=== PATIENT | male | born 1985 | race Caucasian/White ===

== ENCOUNTER 2023-01-29 15:00 | Inpatient (IN) | payer BC, SELFPAY ==
[2023-01-29] VITALS (17 sets, daily range): BP systolic 119–157; BP diastolic 49–93; PULSE 74–94; RESP 10–26; TEMP 36.8–36.9; O2SAT 93–98; BMI 53.2; BMI 48.9
--- NOTE | 2023-01-29 15:36 | CT_ITS ---
[address] [address] Patient Name: JAMIE STOUT MRN: [id number] date: 1985 Sex: M Assigned Patient Location: ER Current Patient Location: ER Accession/Order Number: [id number] Exam Date: 01/29/2023 17:23 Report Date: 01/29/2023 18:33 At the request of: SHANNAN PATTON Procedure: CT abdomen pelvis w con EXAM: CT abdomen pelvis w con REASON FOR EXAM: Male, 37 years, Rectal abscess. TECHNIQUE: Computed tomography of the abdomen and pelvis is performed in the axial projection from the lung bases to the pubic symphysis. Sagittal and coronal reconstructed images are performed. Dose reduction techniques were achieved by using automated exposure control and/or adjustment of mA and/or KVP according to patient size and/or use of iterative reconstruction technique. Images were performed following the administration of intravenous contrast. Study was performed without oral contrast. COMPARISON: 09/23/2022 FINDINGS: Lung bases: The lung bases are clear. There is no pleural effusion. The visualized portions of the heart are unremarkable. Liver: There is diffuse decreased attenuation throughout the liver consistent with steatosis. The liver is enlarged. Gallbladder: The gallbladder is normal. Spleen: The spleen is normal. There are several small splenules. Pancreas: The pancreas is normal. Adrenal glands: The adrenal glands are normal bilaterally. Right kidney: The right kidney is atrophic and scarred. There is no renal calculus or hydronephrosis. Left kidney: The kidney is normal in size. There is no renal calculus or hydronephrosis. Stomach: The stomach is normal. Small bowel: The small bowel is normal. Large bowel: The colon is normal. Appendix: The appendix is visualized, and is normal. Aorta: The aorta is normal. IVC: The IVC is normal. Retroperitoneum: Normal retroperitoneum. Bladder: The bladder is mildly distended at the time of imaging. Pelvic organs: Normal prostate gland. Abdominal wall: There is inflammatory change to the subcutaneous fat posterior to the rectum within the gluteal crease. No definite drainable fluid collection is seen. This suggests phlegmon. This region measures approximately 4.6 x 3.5 cm. Osseous structures: Degenerative changes are seen in the visualized spine. CT/CT abdomen pelvis w con IMPRESSION: Inflammatory changes are seen posterior to the rectum within the subcutaneous fat in the midline gluteal crease. Findings suggest phlegmon. No well-formed drainable abscess is identified. Hepatic steatosis and hepatomegaly. Scarred, atrophic right kidney is unchanged from the prior study. Additional nonacute findings, as described above. Electronically authenticated by: JAYCE HADLEY Date: 01/29/2023 18:33
--- NOTE | 2023-01-29 15:39 | ED_ITS ---
HPI - General Adult General Chief complaint: Skin/Abscess/Foreign Body Stated complaint: POSSIBLE CYST IN REAR/INFECTION OF 01/27/23 Time Seen by Provider: 01/29/23 15:10 Source: patient Mode of arrival: walk-in Limitations: no limitations History of Present Illness HPI narrative: Patient is a 37-year-old male who presents to the emergency department for the evaluation of increasing redness, warmth and swelling with pain to the buttocks and superior rectal area. Patient states that he 1st noticed the area eight days ago. He was seen by his PCP two days ago in the office and was started on Bactrim. He has been taking the Bactrim without improvement. He reports hot and cold chills with fevers as high as 101.0 Fahrenheit two days ago in the PCP office. He reports nausea but no vomiting. He had diarrhea two days ago but has not had bowel movements in the last two days. He states his urination has decreased and his urine is strongly smelling and concentrated. He states his appetite has been fair. There has been no drainage from the perirectal area. He has no history of pilonidal cyst. Related Data Home Medications Medication Instructions Recorded Confirmed metformin 500 mg tablet 500 mg PO DAILY 01/29/23 01/29/23 metoprolol succinate 50 mg 50 mg PO BID 01/29/23 01/29/23 tablet,extended release 24 hr Previous Rx's Medication Instructions Recorded amoxicillin 875 mg-potassium 1 tab PO Q12H #10 tabs 01/31/23 clavulanate 125 mg tablet Allergies Allergy/AdvReac Type Severity Reaction Status Date / Time promethazine [From Phenergan] Allergy Intermediate Verified 01/29/23 15:14 Review of Systems ROS Constitutional Denies: fever or chills Ears, nose, mouth, and throat Denies: throat pain Cardiovascular Denies: chest pain Respiratory Denies: shortness of breath or cough Gastrointestinal Reports: nausea; Denies: abdominal pain Genitourinary Reports: urinary urgency and decreased urine ouput Musculoskeletal Denies: back pain Integumentary/Breast Reports: skin pain, skin tenderness and skin swelling; Denies: rash Neurological Denies: headache [facility] Medical History (Updated 01/30/23 @ 13:05 by Shaikh Konrad MD) Family History Grandfather Family history of cancer Father Family history of diabetes mellitus Family history of hypertension Social History Smoking status: Never smoker Non-prescribed substance use: denies use Previous occupational history: steel construction worker Known occupational exposures/hazards: No Highest level of school completed/degree received: 12th grade, no diploma Do you want help with school or training: No Are you now , , , , never or living with a partner: living with partner In a typical week, how many times do you talk on the telephone with family, friends, or neighbors: 3 or more times per week How often do you get together with friends or relatives: 3 or more times per week How often do you attend confucianism or bahai services: never Do you belong to any clubs or organizations such as confucianism groups unions, fra[employer]ink[employer] or athletic groups, or school groups: no Total score: 2 Score interpretation: A score of greater than or equal to 2 indicates the lowest level of social isolation. Little interest or pleasure in doing things: not at all Feeling down, depressed, or hopeless: not at all Feel stressed/tense/nervous/anxious/difficulty sleeping: not at all Life stressors: unknown source of stress Due to disability, difficulty making decisions: No Do you think of yourself as: straight/heterosexual Gender Identity: male Exam Narrative Exam Narrative: Gen.: Awake, alert, in no distress Head: Normocephalic, atraumatic ENT: Moist mucous membranes Respiratory: No respiratory distress Gastrointestinal: Abdomen is soft, nondistended and nontender to palpation Back: Superior buttocks with induration, warmth and swelling, worse on the right. No visible central abscess noted. No extension of redness or swelling to the rectum. Extremities: Moves extremities equally Psych: Normal mood and affect Neuro: No focal neuro deficit Skin: Warm, dry, intact Constitutional Vital Signs, click to edit/add: Last Vital Signs Temp 98.1 F 01/31/23 09:05 Pulse 76 01/31/23 09:05 Resp 20 01/31/23 09:05 BP 156/81 H 01/31/23 09:05 Pulse Ox 97 01/31/23 11:28 O2 Del Method Room Air 01/31/23 11:28 Course Vital Signs Vital signs: Vital Signs Temperature 98.5 F 01/29/23 15:08 Pulse Rate 92 H 01/29/23 15:08 Respiratory Rate 20 01/29/23 15:08 Blood Pressure 144/93 H 01/29/23 15:08 Pulse Oximetry 98 01/29/23 15:08 Oxygen Delivery Method Room Air 01/29/23 15:08 Temperature 98.1 F 01/31/23 09:05 Pulse Rate 76 01/31/23 09:05 Respiratory Rate 20 01/31/23 09:05 Blood Pressure 156/81 H 01/31/23 09:05 Pulse Oximetry 97 01/31/23 11:28 Oxygen Delivery Method Room Air 01/31/23 11:28 Medical Decision Making MDM Narrative Medical decision making narrative: Patient was medicated with IV Dilaudid, Toradol, Zofran, fluids. He had no episodes of emesis in the Emergency Room, he was remedicated with Dilaudid after his CT scan. Labs show minimal leukocytosis but normal lactic acid. Patient with a history of diabetes. He was treated with Cipro and Flagyl IV in case of possible rectal involvement. CT shows that the patient has a 4.6 cm phlegmon with no drainable abscess. There is inflammatory change noted in the buttocks consistent with cellulitis. I discussed the case with Dr. Galicia [facility] who recommended adding Zosyn for the patient. We will plan to admit for pain control and antibiotics overnight, patient with stable vital signs at this time. No plan for surgical procedures at this time. Dr. Mccarthy accepted the patient for admission (1854) Reevaluated by attending physician prior to admission. At time of admission, patient reported feeling some discomfort in his chest after standing, feeling nauseous. He was dry heaving and was given additional Zofran. An EKG was performed showing normal sinus rhythm at a rate of 86, no acute ST elevation or ectopy. This is reviewed by attending physician. Medical Records Medical records reviewed: Yes I reviewed the patient's medical records Lab Data Lab results reviewed: Yes I reviewed the patient's lab results Labs: Lab Results 01/29/23 01/29/23 Range/Units 16:00 16:15 WBC 12.8 H (4.0-11.0) 10^3/uL RBC 4.68 L (4.70-6.10) 10^6/uL Hgb 13.3 L (14.0-18.0) g/dL Hct 38.5 L (42.0-54.0) % MCV 82.3 (80.0-94.0) fL MCH 28.4 (25.9-34.0) pg MCHC 34.5 (29.9-35.2) g/dL RDW 13.4 (11.0-15.0) % Plt Count 292 (150-450) 10^3/uL MPV 10.0 (9.5-13.5) fL Neut % (Auto) 75.4 H (43.0-75.0) % Lymph % (Auto) 13.0 L (20.5-60.0) % Mineral % (Auto) 7.8 (1.7-12.0) % Eos % (Auto) 2.8 (0.9-7.0) % Baso % (Auto) 0.5 (0.2-2.0) % Neut # (Auto) 9.6 H (1.4-6.5) 10^3/uL Lymph # (Auto) 1.7 (1.2-3.8) 10^3/uL Mineral # (Auto) 1.0 H (0.3-0.8) 10^3/uL Eos # (Auto) 0.4 (0.0-0.7) 10^3/uL Baso # (Auto) 0.1 (0.0-0.1) 10^3/uL Abs Immat Gran (auto) 0.06 H (0.00-0.03) 10^3/uL Imm/Tot Granulo (auto) 0.5 (0.0-0.5) % ESR 68 H (<=15) mm/hr Sodium 134 L (136-145) mmol/L Potassium 4.0 (3.5-5.1) mmol/L Chloride 98 (98-107) mmol/L Carbon Dioxide 24.5 (21.0-32.0) mmol/L Anion Gap 15.5 BUN 11.0 (7.0-18.0) mg/dL Creatinine 0.93 (0.70-1.30) mg/dL Est GFR ( Amer) >60 (>=60) Est GFR (Non-Af Amer) >60 (>=60) BUN/Creatinine Ratio 11.8 Glucose 310 H (74-106) mg/dL Lactate 2.0 (0.4-2.0) mmol/L Calcium 8.9 (8.5-10.1) mg/dL Total Bilirubin 1.0 (0.2-1.0) mg/dL AST 18 (15-37) U/L ALT 41 (16-63) U/L Alkaline Phosphatase 118 H (46-116) U/L C-Reactive Protein 29.3 H (<=1.0) mg/dL Total Protein 7.8 (6.4-8.2) g/dL Albumin 3.2 L (3.4-5.0) g/dL Globulin 4.6 g/dL Albumin/Globulin Ratio 0.7 Urine Color Dk. yellow (YELLOW) Urine Clarity Clear (CLEAR) Urine pH 6.0 (5.0-9.0) Ur Specific [place] 1.025 (1.005-1.025) Urine Protein 100 A (NEG/TRACE) mg/dL Urine Glucose (UA) 500 A (NEGATIVE) mg/dL Urine Ketones 15 A (NEGATIVE) mg/dL Urine Occult Blood Negative (NEGATIVE) Urine Nitrite Negative (NEGATIVE) Urine Bilirubin Negative (NEGATIVE) Urine Urobilinogen >=8.0 (0.2-1.0) EU/dL Ur Leukocyte Esterase Negative (NEGATIVE) Urine RBC 0-2 (0-2) #/HPF Urine WBC None seen (NONE SEEN) #/HPF Ur Squamous Epith Cells Rare (NONE/RARE) #/LPF Urine Crystals None seen (None Seen) #/HPF Urine Bacteria None seen (NONE SEEN) #/HPF Urine Casts None seen (NONE SEEN) #/LPF Urine Mucus None seen (NONE SEEN) Ur Culture Indicated? No Imaging Data CT scan - abdomen: Attestation: I have reviewed the pertinent imaging results. Radiologist's impression: Procedure: CT abdomen pelvis w con EXAM: CT abdomen pelvis w con REASON FOR EXAM: Male, 37 years, Rectal abscess. TECHNIQUE: Computed tomography of the abdomen and pelvis is performed in the axial projection from the lung bases to the pubic symphysis. Sagittal and coronal reconstructed images are performed. Dose reduction techniques were achieved by using automated exposure control and/or adjustment of mA and/or KVP according to patient size and/or use of iterative reconstruction technique. Images were performed following the administration of intravenous contrast. Study was performed without oral contrast. COMPARISON: 09/23/2022 FINDINGS: Lung bases: The lung bases are clear. There is no pleural effusion. The visualized portions of the heart are unremarkable. Liver: There is diffuse decreased attenuation throughout the liver consistent with steatosis. The liver is enlarged. Gallbladder: The gallbladder is normal. Spleen: The spleen is normal. There are several small splenules. Pancreas: The pancreas is normal. Adrenal glands: The adrenal glands are normal bilaterally. Right kidney: The right kidney is atrophic and scarred. There is no renal calculus or hydronephrosis. Left kidney: The kidney is normal in size. There is no renal calculus or hydronephrosis. Stomach: The stomach is normal. Small bowel: The small bowel is normal. Large bowel: The colon is normal. Appendix: The appendix is visualized, and is normal. Aorta: The aorta is normal. IVC: The IVC is normal. Retroperitoneum: Normal retroperitoneum. Bladder: The bladder is mildly distended at the time of imaging. Pelvic organs: Normal prostate gland. Abdominal wall: There is inflammatory change to the subcutaneous fat posterior to the rectum within the gluteal crease. No definite drainable fluid collection is seen. This suggests phlegmon. This region measures approximately 4.6 x 3.5 cm. Osseous structures: Degenerative changes are seen in the visualized spine. IMPRESSION: Inflammatory changes are seen posterior to the rectum within the subcutaneous fat in the midline gluteal crease. Findings suggest phlegmon. No well-formed drainable abscess is identified. Hepatic steatosis and hepatomegaly. Scarred, atrophic right kidney is unchanged from the prior study. Additional nonacute findings, as described above. Electronically authenticated by: JAYCE HADLEY Date: 01/29/2023 18:33 ECG Data Attestation: I personally reviewed and interpreted this ECG as follows: (Normal sinus rhythm at a rate of eighty-six, no acute ST elevation or ectopy. EKG reviewed by attending physician) Discharge Plan Discharge Chief Complaint: Skin/Abscess/Foreign Body Clinical Impression: Phlegmon, Cellulitis, Pain in rectum Patient Disposition: Admitted As Inpatient Time of Disposition Decision: 18:50 Condition: Good Discharge Date/Time: 01/29/23 20:05
[2023-01-29] MEDS: 0.9 % SODIUM CHLORIDE 1,000 ML 999 ML IV (16:07)
[2023-01-29] MEDS: HYDROMORPHONE HCL 1 MG/ML CARTRIDGE IVP ×2 (16:08→17:44)
[2023-01-29] MEDS: ONDANSETRON PF 4 MG/2 ML VIAL IV ×3 (16:08→22:59)
[2023-01-29] MEDS: KETOROLAC TROMETHAMINE 30 MG/ML VIAL IVP ×2 (16:08→22:59)
[2023-01-29 16:35] LABS: Basophils Absolute Auto 0.1 10^3/uL (0.0-0.1); Basophils Percent Auto 0.5 % (0.2-2.0); Eosinophils Absolute Auto 0.4 10^3/uL (0.0-0.7); Eosinophils Percent Auto 2.8 % (0.9-7.0); Hematocrit 38.5 % (42.0-54.0); Hemoglobin 13.3 g/dL (14.0-18.0); Immature Granulocytes Abs Auto 0.06 10^3/uL (0.00-0.03); Immature Granulocytes Pct Auto 0.5 % (0.0-0.5); Lymphocytes Absolute Auto 1.7 10^3/uL (1.2-3.8); Mean Corpuscular HGB Conc 34.5 g/dL (29.9-35.2); Mean Corpuscular Hemoglobin 28.4 pg (25.9-34.0); Mean Corpuscular Volume 82.3 fL (80.0-94.0); Monocytes Percent Auto 7.8 % (1.7-12.0); Neutrophils Absolute Auto 9.6 10^3/uL (1.4-6.5); Neutrophils Percent Auto 75.4 % (43.0-75.0); Platelet Count 292 10^3/uL (150-450); Red Blood Count 4.68 10^6/uL (4.70-6.10); Red Cell Distribution Width 13.4 % (11.0-15.0); White Blood Count 12.8 10^3/uL (4.0-11.0)
[2023-01-29 16:40] LABS: Bilirubin Urine NEGATIVE (NEGATIVE); Blood Urine NEGATIVE (NEGATIVE); Clarity Urine CLEAR (CLEAR); Color Urine DK. YELLOW (YELLOW); Glucose Urine UA 500 mg/dL (NEGATIVE); Ketones Urine 15 mg/dL (NEGATIVE); Leukocyte Esterase Urine NEGATIVE (NEGATIVE); Nitrite Urine NEGATIVE (NEGATIVE); Protein Urine 100 mg/dL (NEG/TRACE); Specific Gravity Urine 1.025 (1.005-1.025); Urobilinogen Urine >=8.0 EU/dL (0.2-1.0)
[2023-01-29 16:41] LABS: Urine Microscopic Indicated YES
[2023-01-29 16:56] LABS: Erythrocyte Sedimentation Rate 68 mm/hr (<=15)
[2023-01-29 16:58] LABS: Alanine Aminotransferase 41 U/L (16-63); Albumin Globulin Ratio 0.7; Albumin Level 3.2 g/dL (3.4-5.0); Alkaline Phosphatase 118 U/L (46-116); Anion Gap 15.5; Aspartate Amino Transferase 18 U/L (15-37); BUN Creatinine Ratio 11.8; C Reactive Protein 29.3 mg/dL (<=1.0); Calcium 8.9 mg/dL (8.5-10.1); Carbon Dioxide 24.5 mmol/L (21.0-32.0); Chloride 98 mmol/L (98-107); Estimated GFR (African America >60 (>=60); Estimated GFR (Non-African Ame >60 (>=60); Globulin 4.6 g/dL; Glucose 310 mg/dL (74-106); Sodium 134 mmol/L (136-145); Total Protein 7.8 g/dL (6.4-8.2)
[2023-01-29 17:02] LABS: Bacteria Urine NONE SEEN #/HPF (NONE SEEN); Cast Seen? NONE SEEN #/LPF (NONE SEEN); Crystals Seen? None Seen #/HPF (None Seen); Mucus Urine NONE SEEN (NONE SEEN); RBC Urine 0-2 #/HPF (0-2); Squamous Epithelial Cell Urine RARE #/LPF (NONE/RARE); Urine Culture Indicated NO; WBC Urine NONE SEEN #/HPF (NONE SEEN)
[2023-01-29] MEDS: CIPROFLOXACIN IN 5 % DEXTROSE 400 MG/200 ML PIGGYBACK IV (17:14)
[2023-01-29] MEDS: METRONIDAZOLE/SODIUM CHLORIDE 500 MG/100 ML PREMIX 100 MG IV (18:40)
--- NOTE | 2023-01-29 19:10 | ECG_ITS ---
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
[2023-01-29] MEDS: PIPERACILLIN SODIUM/TAZOBACTAM 4.5 GM in 0.9 % SODIUM CHLORIDE 50 ML IV (19:24)
--- NOTE | 2023-01-29 20:37 | PC.NURSE ---
bilateral buttocks noted warm, red, and hard to touch
[2023-01-29 21:39] LABS: Glucometer 286 mg/dL (74-106)
--- NOTE | 2023-01-29 22:29 | P.PN_ITS ---
Progress Note: Subjective Subjective Interval history: The patient is a 37-year-old male with a history of hypertension and diabetes on metformin, who apparently noticed a pea-sized bump in his gluteal fold about a week ago. He is not sure how it got there. He does work in the waters a lot and thought it was a cut and got worse with heat or sweat. He has had some bites over his legs and is not sure if he had a spider bite. It continued to become larger in size and then painful and indurated. He saw his primary care physician 2 days ago and was started on Bactrim. He started developing fevers. He had put Neosporin on it prior to that with no effect. He presented to the ED today and actually underwent a CT which showed a 4.6 cm phlegmon. The ED provider spoke to Dr. Galicia from general surgery who stated that the patient needs to be on IV antibiotics and he will consult in the morning. The patient was started on Zosyn and vancomycin and is being admitted for further evaluation. Exam Narrative Exam Narrative: General : Alert and oriented x3 HEENT : Extraocular movements intact, pupils equal round and reactive to light and accommodation Neck: Supple, no JVD Chest: Clear to auscultation bilaterally, no wheezes Heart: Regular rate and rhythm, S1 and S2 heard Abdomen: Soft nontender nondistended. Extremities: No clubbing cyanosis or edema Neurologically: Moving all 4 extremities Skin: Large cellulitic area over buttocks, right greater than the left, painful and indurated to touch, warm to touch according to nurse Constitutional Vital Signs, click to edit/add: Last Vital Signs Temp 98.3 F 01/29/23 20:42 Pulse 94 H 01/29/23 20:42 Resp 20 01/29/23 20:42 BP 157/90 H 01/29/23 20:42 Pulse Ox 93 L 01/29/23 20:42 O2 Del Method Room Air 01/29/23 20:42 Progress Note: Objective Labs Labs: Short CBC 01/29/23 Range/Units 16:15 WBC 12.8 H (4.0-11.0) 10^3/uL Hgb 13.3 L (14.0-18.0) g/dL Hct 38.5 L (42.0-54.0) % Plt Count 292 (150-450) 10^3/uL BMP 01/29/23 16:15 Sodium 134 L Potassium 4.0 Chloride 98 Carbon Dioxide 24.5 BUN 11.0 Creatinine 0.93 Glucose 310 H Calcium 8.9 Liver Function 01/29/23 Range/Units 16:15 Total Bilirubin 1.0 (0.2-1.0) mg/dL AST 18 (15-37) U/L ALT 41 (16-63) U/L Alkaline Phosphatase 118 H (46-116) U/L Albumin 3.2 L (3.4-5.0) g/dL Urine 01/29/23 Range/Units 16:00 Urine Color Dk. yellow (YELLOW) Urine Clarity Clear (CLEAR) Urine pH 6.0 (5.0-9.0) Ur Specific [place] 1.025 (1.005-1.025) Urine Protein 100 A (NEG/TRACE) mg/dL Urine Glucose (UA) 500 A (NEGATIVE) mg/dL Progress Note: A&P Assessment and Plan (1) Phlegmon: (2) Cellulitis: Assessment and Plan: The patient is a 37-year-old male with above medical problems, presenting with cellulitis and phlegmon of the gluteal cleft. Cellulitis and phlegmon of the gluteal cleft -Provide supportive care -Empiric antibiotics with Zosyn and vancomycin - NPO -Surgical evaluation in a.m. for possible incision and drainage Accelerated hypertension -Hydralazine IV as needed Diabetes -Sliding scale coverage -Hold metformin as patient recently got CT and is n.p.o. DVT Prophylaxis - SCDs Medication review -Medication reconciliation form completed Goals of care -Full code Communications -Discussed with the emergency room physician -Discussed with the bedside nurse -Patient and girlfriend updated of plan of care, all questions answered to their satisfaction Disposition -Home when medically stable Telemedicine clause -As the provider of this telehealth evaluation, requested by the patient's evaluating physician, I attest that I introduced myself to the patient, provided my credentials and determined that telemedicine via a real-time, two-way interactive audio and video platform is an appropriate and effective means of providing this service. -I reviewed the patient's chart and had a discussion with the member of the gabino kilpatrick's treatment team. -The patient and I mutually agreed with continuation of this evaluation via telemedicine. The patient consented for the telemedicine evaluation. -This virtual encounter was taken place from [place], [place]. The encounter was approximately 35 minutes. The nurse was present during the entire time of the encounter and was able to remove the stethoscope and appropriate directions. The patient was evaluated at [facility] Telemedicine Attestation Telemedicine Attestation I conducted this encounter from [] via secure live, [id number] video conference with the patient, located at [facility] with []. Prior to the interview, the risks and benefits of telemedicine were discussed with the patient and verbal consent was obtained.
--- NOTE | 2023-01-29 22:41 | RESP.RT ---
Placed pt on home cpap for the night.
--- NOTE | 2023-01-29 22:45 | RESP.RT ---
Pt denies need for PRN breathing tx at this time. No respiratory distress noted.
[2023-01-29] MEDS: DOCUSATE SODIUM 100 MG CAPSULE PO (22:59)
[2023-01-29] MEDS: SODIUM CHLORIDE 0.45 % 1,000 ML 75 ML IV (22:59)
[2023-01-29] MEDS: PIPERACILLIN SODIUM/TAZOBACTAM 3.375 GM in 0.9 % SODIUM CHLORIDE 50 ML IV (23:12)
[2023-01-30] VITALS (25 sets, daily range): BP systolic 107–156; BP diastolic 50–83; PULSE 76–103; RESP 12–64; TEMP 36.8–38.2; O2SAT 92–98
--- NOTE | 2023-01-30 | OP_ITS ---
OPERATION DATE: ??01/30/2023 PREOPERATIVE DIAGNOSIS:?? Right buttock abscess. POSTOPERATIVE DIAGNOSIS:? Right buttock abscess with extension across the midline to left buttock. PROCEDURE:? Incision and drainage, debridement, irrigation and packing of right buttock abscess. SURGEON:? Migue Galicia M.D. ANESTHESIA:? Monitored anesthesia care. ESTIMATED BLOOD LOSS:? Less than 10 mL. INDICATIONS AND CONSENT:? Patient is a 37-year-old diabetic, who presented with a week history of pain and swelling in the lower gluteal cleft, extending more to the right medial buttock.? CT scan performed last evening just revealed phlegmonous changes. He has had improvement in cellulitis with antibiotics but no improvement in pain or induration, particularly in the right medial buttock.? Indications, risks, benefits, alternatives of proceeding with incision and drainage, irrigation, debridement and packing of the area were explained extensively to the patient, including risks of bleeding, infection, scarring, pain, recurrence, need for further surgery.? All of his questions were answered.? Informed consent was obtained. PROCEDURE:? Patient brought to the operating room, placed in the left lateral decubitus position.? Monitored anesthesia care was provided.? He was prepped and draped in the usual sterile fashion.? Incision was made in the area of induration, approximately 2 cm long.? Thick purulent material was drained.? It was also sent for culture.? The abscess cavity extended across the midline to the left medial buttock.? Cavity was approximately 3 x 5 cm in diameter.? It was irrigated with half strength peroxide, debrided with a curette, and then packed with 2? Kerlix gauze soaked in half strength Betadine solution.? ABDs were applied as well as some tape, and patient tolerated procedure well, was sent to recovery room in good condition.? CC:? Patient?s family physician ALIREZA
--- NOTE | 2023-01-30 | CONS_ITS ---
CONSULTATION DATE: ??01/30/2023 REASON FOR CONSULTATION:? Pilonidal abscess. HISTORY OF PRESENT ILLNESS:? Patient is a 37-year-old male with history of type 2 diabetes, hypertension, morbid obesity, who presented to the emergency room with a one week history of pain in the gluteal cleft and swelling as well as fever.? He had been treated with antibiotics by his family doctor for several days with no improvement in his symptoms.? In the emergency department, he was found to have significant cellulitis and swelling in the gluteal cleft, extending more to the right buttock, but also some to the medial left buttock not involving the perianal area.? He had mild elevation in his white blood cell count, as well as marked elevation in his glucose.? He did undergo a CT scan of the abdomen and pelvis which did not reveal significant abscess.? There was no air in the tissues, just mostly what they called phlegmon and edema.? He does report some improvement in his pain from the IV antibiotics, but still has significant induration, swelling and tenderness.? The cellulitis has decreased from where it was marked last evening.? Patient denies any history of similar problems in the past.? Believes this began as a small scratch in the area that then became infected and more swollen over the past week.? He has had no drainage from the area.? He does not check his glucose at home, does not use any tobacco products.? Of note is he does have one functioning kidney due to scarring from previous nephrolithiasis and atrophy of his other kidney.? He denies aspirin or NSAID use.? He is on no anticoagulants.? ALLERGIES:? Patient does have allergies to Phenergan. MEDICATIONS:? Home medications include metformin as well as metoprolol. SOCIAL HISTORY:? Patient denies tobacco use or illicit drug use.? He does work as a construction administrator, lives with his girlfriend.? Denies alcohol use. FAMILY HISTORY:? Noncontributory. REVIEW OF SYSTEMS:? Ten system review of systems is negative for recent weight loss or weight gain.? Denies increased fatigue or light-headedness.? He has had no earache or tinnitus.? No sinus congestion.? No sore throat or hoarseness.? No chest pain, palpitations or syncope.? No chronic cough, shortness of breath or hemoptysis.? No abdominal pain, nausea or vomiting.? No diarrhea, constipation, decreased caliber of the stool.? No melena, hematochezia or bright red blood per rectum.? No dysuria, frequency, urgency or hematuria.? No headaches, seizures or tremors.? No easy bruising or bleeding.? No heat or cold intolerance.? No polydipsia, polyphagia or polyuria. PHYSICAL EXAM:? VITAL SIGNS:? Patient is currently afebrile.? Blood pressure is 137/83.? Heart rate is 85.? Respiratory rate is 20? O2 saturation is 95% on room air.? T-max was 99.3. GENERAL:? In general, he is an obese male, in no acute distress. HEENT:? Normocephalic, atraumatic.? Sclerae anicteric.? Conjunctiva are not injected.? Oral mucosa is moist without lesions. NECK:? Supple.? There is no adenopathy, thyromegaly or JVD. LUNGS:? Clear bilaterally.? CARDIAC EXAM:? Regular rhythm and rate. SKIN:? Patient?s mid gluteal cleft reveals significant induration, edema.? It is firm, extending mainly to the right medial buttock, as well as slightly to the left of the medial buttock.? There is no fluctuance, no drainage, no open areas, no perianal involvement.? Cellulitis had been marked last evening and appears to have receded from the marked lines.? There is no crepitus.? Skin is otherwise warm and dry without lesions, rashes or ulcers. NEURO EXAM:? Non-focal.? Non-lateralizing.? Patient is awake, alert, oriented with appropriate affect. LABORATORY VALUES:? From this morning reveal a white blood cell count of 12,900.? H&H is 12.4 and 38, normal platelet count.? BUN is 9 with a creatinine of 0.9.? Glucose is elevated at 295.? IMAGING:? CT scan images were personally reviewed. ASSESSMENT:? A 37-year-old male with diabetes, morbid obesity, now with large likely pilonidal abscess.? Cellulitis is improving but the induration and abscess has had no drainage.? PLAN:? The plan will be to proceed with incision and drainage and packing of the abscess under anesthesia in the operating room early this afternoon.? Indications, risks, benefits, alternatives of proceeding were explained extensively to the patient, including risks of bleeding, infection, scarring, pain. Informed consent was obtained. MTDD
[2023-01-30] MEDS: VANCOMYCIN HCL 2,000 MG in 0.9 % SODIUM CHLORIDE 500 ML 250 MG IV ×2 (00:23→11:04)
[2023-01-30 04:57] LABS: Basophils Absolute Auto 0.1 10^3/uL (0.0-0.1); Basophils Percent Auto 0.5 % (0.2-2.0); Eosinophils Absolute Auto 0.3 10^3/uL (0.0-0.7); Eosinophils Percent Auto 2.4 % (0.9-7.0); Hemoglobin 12.4 g/dL (14.0-18.0); Immature Granulocytes Abs Auto 0.08 10^3/uL (0.00-0.03); Immature Granulocytes Pct Auto 0.6 % (0.0-0.5); Lymphocytes Absolute Auto 1.4 10^3/uL (1.2-3.8); Lymphocytes Percent Auto 10.9 % (20.5-60.0); Mean Corpuscular HGB Conc 32.6 g/dL (29.9-35.2); Mean Corpuscular Hemoglobin 27.7 pg (25.9-34.0); Mean Platelet Volume 9.8 fL (9.5-13.5); Monocytes Percent Auto 7.4 % (1.7-12.0); Neutrophils Absolute Auto 10.1 10^3/uL (1.4-6.5); Neutrophils Percent Auto 78.2 % (43.0-75.0); Platelet Count 266 10^3/uL (150-450); Red Blood Count 4.47 10^6/uL (4.70-6.10); Red Cell Distribution Width 13.4 % (11.0-15.0); White Blood Count 12.9 10^3/uL (4.0-11.0)
[2023-01-30] MEDS: KETOROLAC TROMETHAMINE 30 MG/ML VIAL IVP (05:02)
[2023-01-30 05:03] LABS: Anion Gap 10.3; BUN Creatinine Ratio 9.9; Calcium 8.2 mg/dL (8.5-10.1); Carbon Dioxide 26.7 mmol/L (21.0-32.0); Chloride 95 mmol/L (98-107); Estimated GFR (African America >60 (>=60); Estimated GFR (Non-African Ame >60 (>=60); Glucose 295 mg/dL (74-106); Sodium 128 mmol/L (136-145)
[2023-01-30] MEDS: PIPERACILLIN SODIUM/TAZOBACTAM 3.375 GM in 0.9 % SODIUM CHLORIDE 50 ML IV ×3 (05:34→21:39)
--- NOTE | 2023-01-30 07:00 | P.GSCN_ITS ---
History of Present Illness Consult details Consult date: 01/30/23 Requesting physician: Shaikh Konrad Narrative: patient seen/examined/chart and ct images reviewed/consult dictated; 37 yo male with DMII, obesity, with pilonidal abscess; plan I & D, packing under anesthesia in OR today, continue IV antibiotics, supportive care. [facility] Medical History (Updated 01/29/23 @ 20:49 by Caprice Carrillo) Family History (Updated 01/29/23 @ 20:51 by Caprice Carrillo) Grandfather Family history of cancer Father Family history of diabetes mellitus Family history of hypertension Social History (Updated 01/29/23 @ 20:53 by Caprice Carrillo) Smoking status: Never smoker Non-prescribed substance use: denies use Previous occupational history: field crop ii farmworker Known occupational exposures/hazards: No Highest level of school completed/degree received: 12th grade, no diploma Do you want help with school or training: No Are you now , , , , never or living with a partner: living with partner In a typical week, how many times do you talk on the telephone with family, friends, or neighbors: 3 or more times per week How often do you get together with friends or relatives: 3 or more times per week How often do you attend islam or religion services: never Do you belong to any clubs or organizations such as islam groups unions, fraternal or athletic groups, or school groups: no Total score: 2 Score interpretation: A score of greater than or equal to 2 indicates the lowest level of social isolation. Little interest or pleasure in doing things: not at all Feeling down, depressed, or hopeless: not at all Feel stressed/tense/nervous/anxious/difficulty sleeping: not at all Life stressors: unknown source of stress Due to disability, difficulty making decisions: No Do you think of yourself as: straight/heterosexual Gender Identity: male Meds Home Medications and Allergies Home Medications Medication Instructions Recorded Confirmed Type metformin 500 mg tablet 500 mg PO DAILY 01/29/23 01/29/23 History metoprolol succinate 50 mg 50 mg PO BID 01/29/23 01/29/23 History tablet,extended release 24 hr Allergies Allergy/AdvReac Type Severity Reaction Status Date / Time promethazine [From Phenergan] Allergy Intermediate Verified 01/29/23 15:14 Exam Constitutional Vital Signs, click to edit/add: Last Vital Signs Temp 99.3 F 01/30/23 04:38 Pulse 85 01/30/23 04:38 Resp 20 01/30/23 04:38 BP 137/83 01/30/23 04:38 Pulse Ox 95 01/30/23 04:38 O2 Del Method CPAP 01/30/23 04:38 Results Labs Labs: Abnormal lab results 01/29/23 01/29/23 01/29/23 Range/Units 16:00 16:15 21:38 WBC 12.8 H (4.0-11.0) 10^3/uL RBC 4.68 L (4.70-6.10) 10^6/uL Hgb 13.3 L (14.0-18.0) g/dL Hct 38.5 L (42.0-54.0) % Neut % (Auto) 75.4 H (43.0-75.0) % Lymph % (Auto) 13.0 L (20.5-60.0) % Neut # (Auto) 9.6 H (1.4-6.5) 10^3/uL [place] # (Auto) 1.0 H (0.3-0.8) 10^3/uL Abs Immat Gran (auto) 0.06 H (0.00-0.03) 10^3/uL Imm/Tot Granulo (auto) (0.0-0.5) % ESR 68 H (<=15) mm/hr Sodium 134 L (136-145) mmol/L Chloride (98-107) mmol/L Glucose 310 H (74-106) mg/dL Calcium (8.5-10.1) mg/dL Alkaline Phosphatase 118 H (46-116) U/L C-Reactive Protein 29.3 H (<=1.0) mg/dL Albumin 3.2 L (3.4-5.0) g/dL Urine Protein 100 A (NEG/TRACE) mg/dL Urine Glucose (UA) 500 A (NEGATIVE) mg/dL Urine Ketones 15 A (NEGATIVE) mg/dL POC Glucose 286 H (74-106) mg/dL 01/30/23 Range/Units 04:42 WBC 12.9 H (4.0-11.0) 10^3/uL RBC 4.47 L (4.70-6.10) 10^6/uL Hgb 12.4 L (14.0-18.0) g/dL Hct 38.0 L (42.0-54.0) % Neut % (Auto) 78.2 H (43.0-75.0) % Lymph % (Auto) 10.9 L (20.5-60.0) % Neut # (Auto) 10.1 H (1.4-6.5) 10^3/uL [place] # (Auto) 1.0 H (0.3-0.8) 10^3/uL Abs Immat Gran (auto) 0.08 H (0.00-0.03) 10^3/uL Imm/Tot Granulo (auto) 0.6 H (0.0-0.5) % ESR (<=15) mm/hr Sodium 128 L (136-145) mmol/L Chloride 95 L (98-107) mmol/L Glucose 295 H (74-106) mg/dL Calcium 8.2 L (8.5-10.1) mg/dL Alkaline Phosphatase (46-116) U/L C-Reactive Protein (<=1.0) mg/dL Albumin (3.4-5.0) g/dL Urine Protein (NEG/TRACE) mg/dL Urine Glucose (UA) (NEGATIVE) mg/dL Urine Ketones (NEGATIVE) mg/dL POC Glucose (74-106) mg/dL Diabetes panel 01/29/23 01/30/23 Range/Units 16:15 04:42 Sodium 134 L 128 L (136-145) mmol/L Potassium 4.0 4.0 (3.5-5.1) mmol/L Chloride 98 95 L (98-107) mmol/L Carbon Dioxide 24.5 26.7 (21.0-32.0) mmol/L BUN 11.0 9.0 (7.0-18.0) mg/dL Creatinine 0.93 0.91 (0.70-1.30) mg/dL Glucose 310 H 295 H (74-106) mg/dL Calcium 8.9 8.2 L (8.5-10.1) mg/dL AST 18 (15-37) U/L ALT 41 (16-63) U/L Alkaline Phosphatase 118 H (46-116) U/L Total Protein 7.8 (6.4-8.2) g/dL Albumin 3.2 L (3.4-5.0) g/dL Calcium panel 01/29/23 01/30/23 Range/Units 16:15 04:42 Calcium 8.9 8.2 L (8.5-10.1) mg/dL Albumin 3.2 L (3.4-5.0) g/dL Pituitary panel 01/29/23 01/30/23 Range/Units 16:15 04:42 Sodium 134 L 128 L (136-145) mmol/L Potassium 4.0 4.0 (3.5-5.1) mmol/L Chloride 98 95 L (98-107) mmol/L Carbon Dioxide 24.5 26.7 (21.0-32.0) mmol/L BUN 11.0 9.0 (7.0-18.0) mg/dL Creatinine 0.93 0.91 (0.70-1.30) mg/dL Glucose 310 H 295 H (74-106) mg/dL Calcium 8.9 8.2 L (8.5-10.1) mg/dL Adrenal panel 01/29/23 01/30/23 Range/Units 16:15 04:42 Sodium 134 L 128 L (136-145) mmol/L Potassium 4.0 4.0 (3.5-5.1) mmol/L Chloride 98 95 L (98-107) mmol/L Carbon Dioxide 24.5 26.7 (21.0-32.0) mmol/L BUN 11.0 9.0 (7.0-18.0) mg/dL Creatinine 0.93 0.91 (0.70-1.30) mg/dL Glucose 310 H 295 H (74-106) mg/dL Calcium 8.9 8.2 L (8.5-10.1) mg/dL Total Bilirubin 1.0 (0.2-1.0) mg/dL AST 18 (15-37) U/L ALT 41 (16-63) U/L Alkaline Phosphatase 118 H (46-116) U/L Total Protein 7.8 (6.4-8.2) g/dL Albumin 3.2 L (3.4-5.0) g/dL All other labs normal. Assessment and Plan Assessment and Plan (1) Phlegmon: (2) Cellulitis:
[2023-01-30 07:50] LABS: Glucometer 238 mg/dL (74-106)
[2023-01-30] MEDS: INSULIN ASPART 300 UNIT/3 ML PEN SUBQ ×4 (08:48→21:01)
[2023-01-30 11:03] LABS: Glucometer 222 mg/dL (74-106)
--- NOTE | 2023-01-30 12:53 | PM.HP ---
H&P: HPI History of Present Illness Chief complaint: Gluteal abscess Narrative: 37 y o mal was seen in Outpatient last Wed for pain/swelling and erythema involving his gluteal region and was prescribed Bactrim. Patient took his abx until last night when he could not get comfortable with worsening pain/swelling and came to ED last night. W/u was c/w sepsis and now he had evidence of abscess/phlegmon on CT. Patient was started on broad spectrum abx - Vanc/zosyn and surgery was consulted. Scheduled to go to OR for I&D He is laying on his side, very uncomfortable. He is NPO for surgery later today. Review of Systems ROS Status of ROS 10 or more systems reviewed and unremarkable except as noted in history and below [facility] Medical History (Updated 01/30/23 @ 13:05 by Shaikh Konrad MD) Family History Grandfather Family history of cancer Father Family history of diabetes mellitus Family history of hypertension Social History Smoking status: Never smoker Non-prescribed substance use: denies use Previous occupational history: manager of construction Known occupational exposures/hazards: No Highest level of school completed/degree received: 12th grade, no diploma Do you want help with school or training: No Are you now , , , , never or living with a partner: living with partner In a typical week, how many times do you talk on the telephone with family, friends, or neighbors: 3 or more times per week How often do you get together with friends or relatives: 3 or more times per week How often do you attend protestant or christianity services: never Do you belong to any clubs or organizations such as protestant groups unions, fraternal or athletic groups, or school groups: no Total score: 2 Score interpretation: A score of greater than or equal to 2 indicates the lowest level of social isolation. Little interest or pleasure in doing things: not at all Feeling down, depressed, or hopeless: not at all Feel stressed/tense/nervous/anxious/difficulty sleeping: not at all Life stressors: unknown source of stress Due to disability, difficulty making decisions: No Do you think of yourself as: straight/heterosexual Gender Identity: male Meds Home Medications and Allergies Home Medications Medication Instructions Recorded Confirmed Type metformin 500 mg tablet 500 mg PO DAILY 01/29/23 01/29/23 History metoprolol succinate 50 mg 50 mg PO BID 01/29/23 01/29/23 History tablet,extended release 24 hr Allergies Allergy/AdvReac Type Severity Reaction Status Date / Time promethazine [From Phenergan] Allergy Intermediate Verified 01/29/23 15:14 Exam Constitutional Vital Signs, click to edit/add: Last Vital Signs Temp 99.3 F 01/30/23 04:38 Pulse 85 01/30/23 04:38 Resp 20 01/30/23 04:38 BP 137/83 01/30/23 04:38 Pulse Ox 98 01/30/23 11:08 O2 Del Method Room Air 01/30/23 11:08 Documenting provider has reviewed patient's vital signs: yes Common normals: oriented x3 General appearance: cooperative and in distress Nutritional appearance: obese HENMT Common normals: normocephalic and head/scalp atraumatic Head and scalp: normocephalic and atraumatic Eye Common normals: conjunctivae normal and no scleral icterus Conjunctiva: conjunctiva(e) normal Respiratory Common normals: normal respiratory effort and clear to auscultation bilaterally Effort & inspection: able to speak in complete sentences Auscultation: clear to auscultation bilaterally Cardio Common normals: regular rate, S1 normal heart sound and S2 normal heart sound Rate: regular rate Heart sounds: S1 normal and S2 normal GI Common normals: Normal to inspection, nondistended, normoactive bowel sounds present, soft to palpation, non-tender and no hepatosplenomegaly Palpation: soft and no hepatosplenomegaly Common normals: no CVA tenderness Back & Pelvis Other: Significant erythema/induration of both gluteal region extending into gluteal cleft. Extremity Common normals: no clubbing, cyanosis or edema Neuro Common normals: oriented x3, moves all extremities and no focal motor deficits Psych Common normals: mental status grossly normal, denies hallucinations, denies homicidal ideation and denies suicidal ideation Results Labs Labs: Short CBC 01/29/23 01/30/23 Range/Units 16:15 04:42 WBC 12.8 H 12.9 H (4.0-11.0) 10^3/uL Hgb 13.3 L 12.4 L (14.0-18.0) g/dL Hct 38.5 L 38.0 L (42.0-54.0) % Plt Count 292 266 (150-450) 10^3/uL BMP 01/29/23 01/30/23 16:15 04:42 Sodium 134 L 128 L Potassium 4.0 4.0 Chloride 98 95 L Carbon Dioxide 24.5 26.7 BUN 11.0 9.0 Creatinine 0.93 0.91 Glucose 310 H 295 H Calcium 8.9 8.2 L Liver Function 01/29/23 Range/Units 16:15 Total Bilirubin 1.0 (0.2-1.0) mg/dL AST 18 (15-37) U/L ALT 41 (16-63) U/L Alkaline Phosphatase 118 H (46-116) U/L Albumin 3.2 L (3.4-5.0) g/dL Urine 01/29/23 Range/Units 16:00 Urine Color Dk. yellow (YELLOW) Urine Clarity Clear (CLEAR) Urine pH 6.0 (5.0-9.0) Ur Specific [place] 1.025 (1.005-1.025) Urine Protein 100 A (NEG/TRACE) mg/dL Urine Glucose (UA) 500 A (NEGATIVE) mg/dL Assessment and Plan Assessment and Plan (1) Cellulitis and abscess of buttock: Assessment and Plan: Failed outpatient therapy and p/w worsening cellulitis, now progressed into an abscess. NPO for I&D. On IV vancomycin and zosyn for broad spectrum coverage. F/u blood and OR cx (2) Sepsis: Assessment and Plan: HR > 90, RR> 20 and WBC very close to 13K Stable hemodynamics now. Gentle IV hydration I&D today. F/u cx C/w current abx (3) HTN (hypertension): Assessment and Plan: Stable. C/w toprol (4) History of prediabetes: Assessment and Plan: On metformin as outpatient. Hyperglycemia noted likely due to sepsis/infection. on SSI for it. (5) Morbid obesity: Assessment and Plan: Morbidly obese. Will benefit from weight loss. Defer to outpatient (6) ROSEANN (obstructive sleep apnea): Assessment and Plan: uses CPAP. compliant with it. Plan Inpatient stay as cellulitis and abscess - requiring surgical drainage, failed outpatient abx therapy and now on broad spectrum abx
[2023-01-30] MEDS: LACTATED RINGER'S SOLUTION 1,000 ML 50 ML IV (13:21)
[2023-01-30] MEDS: BUPIVACAINE HCL 0.5% PF 50 MG/10 ML VIAL 20 ML INJ (13:59)
[2023-01-30 15:04] LABS: Glucometer 202 mg/dL (74-106)
[2023-01-30] MEDS: LACTATED RINGER'S SOLUTION 1,000 ML 100 ML IV (15:41)
[2023-01-30] MEDS: OXYCODONE HCL 5 MG TABLET PO ×2 (16:05→21:00)
[2023-01-30 16:27] LABS: Glucometer 216 mg/dL (74-106)
--- NOTE | 2023-01-30 16:36 | SWNOTE1 ---
No operative note in at the time SW was leaving, unsure if pt will have any discharge needs.
--- NOTE | 2023-01-30 16:51 | SWNOTE1 ---
SW spoke with pt's nurse and pt's will be doing the packing on his buttocks.
--- NOTE | 2023-01-30 17:32 | CM.NOTE ---
Pt seen on rounds w Dr Silvestre. No discharge today. To go to OR today.
[2023-01-30] MEDS: ACETAMINOPHEN 325 MG TABLET 650 MG PO (19:31)
[2023-01-30 20:54] LABS: Glucometer 267 mg/dL (74-106)
[2023-01-31] MEDS: VANCOMYCIN HCL 2,000 MG in 0.9 % SODIUM CHLORIDE 500 ML 250 MG IV (01:53)
[2023-01-31] MEDS: LACTATED RINGER'S SOLUTION 1,000 ML 100 ML IV (02:00)
[2023-01-31] MEDS: OXYCODONE HCL 5 MG TABLET PO (04:41)
[2023-01-31 05:04] LABS: Basophils Absolute Auto 0.1 10^3/uL (0.0-0.1); Basophils Percent Auto 0.5 % (0.2-2.0); Eosinophils Absolute Auto 0.5 10^3/uL (0.0-0.7); Eosinophils Percent Auto 4.2 % (0.9-7.0); Hematocrit 33.1 % (42.0-54.0); Hemoglobin 11.2 g/dL (14.0-18.0); Immature Granulocytes Pct Auto 0.9 % (0.0-0.5); Lymphocytes Absolute Auto 1.8 10^3/uL (1.2-3.8); Lymphocytes Percent Auto 15.4 % (20.5-60.0); Mean Corpuscular HGB Conc 33.8 g/dL (29.9-35.2); Mean Corpuscular Hemoglobin 28.4 pg (25.9-34.0); Mean Platelet Volume 9.4 fL (9.5-13.5); Monocytes Percent Auto 8.8 % (1.7-12.0); Neutrophils Percent Auto 70.2 % (43.0-75.0); Platelet Count 250 10^3/uL (150-450); Red Blood Count 3.94 10^6/uL (4.70-6.10); Red Cell Distribution Width 13.2 % (11.0-15.0); White Blood Count 11.4 10^3/uL (4.0-11.0)
[2023-01-31 05:17] LABS: Anion Gap 10.6; Calcium 8.6 mg/dL (8.5-10.1); Carbon Dioxide 29.4 mmol/L (21.0-32.0); Chloride 98 mmol/L (98-107); Estimated GFR (African America >60 (>=60); Estimated GFR (Non-African Ame >60 (>=60); Glucose 248 mg/dL (74-106); Sodium 134 mmol/L (136-145)
[2023-01-31 06:00] VITALS: BP 146/68; PULSE 73; RESP 18; TEMP 36.6; O2SAT 94
[2023-01-31] MEDS: PIPERACILLIN SODIUM/TAZOBACTAM 3.375 GM in 0.9 % SODIUM CHLORIDE 50 ML IV (06:39)
[2023-01-31] MEDS: INSULIN ASPART 300 UNIT/3 ML PEN SUBQ ×2 (07:59→12:36)
[2023-01-31 08:00] VITALS: PULSE 88; RESP 18
[2023-01-31] MEDS: ONDANSETRON PF 4 MG/2 ML VIAL IV (08:38)
[2023-01-31 09:05] VITALS: BP 156/81; PULSE 76; RESP 20; TEMP 36.7; O2SAT 95
[2023-01-31 10:43] LABS: Estimated Average Glucose 269 mg/dL
--- NOTE | 2023-01-31 10:43 | PM.GSPN ---
Progress Note: A&P Assessment and Plan (1) Cellulitis and abscess of buttock: Assessment and Plan: resolved; wound repacked; pack bid while in the hospital, can change to daily on discharge; patient should remove dressing and packing and shower/bath wash area daily, then repack. (2) Sepsis: Assessment and Plan: resolved (3) HTN (hypertension): Assessment and Plan: stable (4) History of prediabetes: Assessment and Plan: glucose still high due to stress of surgery/infection (5) Morbid obesity: (6) ROSEANN (obstructive sleep apnea): Assessment and Plan: using CPAP Plan can switch to oral antibiotics; Augmentin 875 mg po bid; cxs pending; dressing changes; supportive care; can discharge when medically stable; I will see patient next week in the office. Subjective Subjective Interval history: POD # 1 s/p I & D of buttock abscess with packing; pain improved, afebrile, wbc decreased; some nausea and emesis this am, improved now; had oxycodone early this am; good pain control; IV out, unable to restart. Exam Narrative Exam Narrative: resting comfortably skin: buttocks with resolution of cellulitis, induration improved; abscess cavity clean, no purulence or crepitus Constitutional Vital Signs, click to edit/add: Last Vital Signs Temp 98.1 F 01/31/23 09:05 Pulse 76 01/31/23 09:05 Resp 20 01/31/23 09:05 BP 156/81 H 01/31/23 09:05 Pulse Ox 95 01/31/23 09:05 O2 Del Method Room Air 01/31/23 09:05
[2023-01-31 11:22] LABS: Glucometer 270 mg/dL (74-106)
[2023-01-31 11:28] VITALS: O2SAT 97
[2023-01-31] MEDS: IBUPROFEN 600 MG TABLET PO (12:34)
[2023-01-31] MEDS: AMOXICILLIN/POTASSIUM CLAV 1 TAB TABLET PO (12:34)
--- NOTE | 2023-01-31 14:10 | PM.DS1 ---
DS: Providers Provider Date of admission: 01/29/23 20:07 Primary care physician: Tree Pedraza MD Consults: 01/29/23 22:16 Consult to General Surgeon Routine Consulting Provider: Migue Galicia Reason for consultation: gluteal cellulitis, with phlegmon 01/31/23 Consult to PICC Line RN Routine Consulting Provider: Shaikh Silvestre Reason for consultation: No IV access Has provider been notified: Yes Attending physician on discharge: Shaikh Konrad Discharging clinician: Shaikh Konrad DS: Diagnosis Discharge Diagnosis (1) Cellulitis and abscess of buttock: Assessment and plan: Failed outpatient abx therapy. S/p I&D on 01/30/23. Doing well post op. Cleared for d/c by General Surgery. (2) Sepsis: Assessment and plan: Resolved (3) HTN (hypertension): Assessment and plan: C/w home meds (4) History of prediabetes: Assessment and plan: C/w metformin (5) Morbid obesity: Assessment and plan: Gianni benefit from weight loss (6) ROSEANN (obstructive sleep apnea): Assessment and plan: C/w CPAP DS: Summary Hospital Course Hospital Course: 37 y o male presented with worsening pain/swelling and erythema involving his gluteal region and was admitted for IV abx and surgical drainage of phlegmon noted on CT scan. He had I&D on 01/30. Doing much better today. Stable fr d/c on oral Augmentin. Outpatient wound care with daily dressings. F/u with PCP and Dr GALICIA Educated on signs and symptoms that should prompt him to seek urgent care. Status at Discharge Functional status at discharge: independent ambulation Overall status at discharge: patient is back to baseline Time Spent with Patient Time attestation: Total time spent providing and/or coordinating discharge services: Time spent: greater than 30 minutes Exam Constitutional Vital Signs, click to edit/add: Last Vital Signs Temp 98.1 F 01/31/23 09:05 Pulse 76 01/31/23 09:05 Resp 20 01/31/23 09:05 BP 156/81 H 01/31/23 09:05 Pulse Ox 97 01/31/23 11:28 O2 Del Method Room Air 01/31/23 11:28 Documenting provider has reviewed patient's vital signs: yes Common normals: oriented x3 General appearance: cooperative and in distress Nutritional appearance: obese HENMT Common normals: normocephalic and head/scalp atraumatic Head and scalp: normocephalic and atraumatic Eye Common normals: conjunctivae normal and no scleral icterus Conjunctiva: conjunctiva(e) normal Respiratory Common normals: normal respiratory effort and clear to auscultation bilaterally Effort & inspection: able to speak in complete sentences Auscultation: clear to auscultation bilaterally Cardio Common normals: regular rate, S1 normal heart sound and S2 normal heart sound Rate: regular rate Heart sounds: S1 normal and S2 normal GI Common normals: Normal to inspection, nondistended, normoactive bowel sounds present, soft to palpation, non-tender and no hepatosplenomegaly Palpation: soft and no hepatosplenomegaly Common normals: no CVA tenderness Back & Pelvis Other: post op dressing in place in buttocks region Extremity Common normals: no clubbing, cyanosis or edema Neuro Common normals: oriented x3, moves all extremities and no focal motor deficits Psych Common normals: mental status grossly normal, denies hallucinations, denies homicidal ideation and denies suicidal ideation DS: Data Data Completed and Pending Labs on day of discharge: Labs from last 24 hours 01/31/23 01/31/23 01/30/23 11:21 04:51 20:52 WBC 11.4 H RBC 3.94 L Hgb 11.2 L Hct 33.1 L MCV 84.0 MCH 28.4 MCHC 33.8 RDW 13.2 Plt Count 250 MPV 9.4 L Neut % (Auto) 70.2 Lymph % (Auto) 15.4 L [place] % (Auto) 8.8 Eos % (Auto) 4.2 Baso % (Auto) 0.5 Neut # (Auto) 8.0 H Lymph # (Auto) 1.8 [place] # (Auto) 1.0 H Eos # (Auto) 0.5 Baso # (Auto) 0.1 Abs Immat Gran (auto) 0.10 H Imm/Tot Granulo (auto) 0.9 H Sodium 134 L Potassium 4.0 Chloride 98 Carbon Dioxide 29.4 Anion Gap 10.6 BUN 6.0 L Creatinine 0.86 Est GFR ( Amer) >60 Est GFR (Non-Af Amer) >60 BUN/Creatinine Ratio 7.0 Glucose 248 H Estimat Average Glucose 269 Hemoglobin A1c 11.0 H Calcium 8.6 POC Glucose 270 H 267 H 01/30/23 01/30/23 16:26 15:02 WBC RBC Hgb Hct MCV MCH MCHC RDW Plt Count MPV Neut % (Auto) Lymph % (Auto) [place] % (Auto) Eos % (Auto) Baso % (Auto) Neut # (Auto) Lymph # (Auto) [place] # (Auto) Eos # (Auto) Baso # (Auto) Abs Immat Gran (auto) Imm/Tot Granulo (auto) Sodium Potassium Chloride Carbon Dioxide Anion Gap BUN Creatinine Est GFR ( Amer) Est GFR (Non-Af Amer) BUN/Creatinine Ratio Glucose Estimat Average Glucose Hemoglobin A1c Calcium POC Glucose 216 H 202 H Preliminary micro results at discharge 01/30/23 13:47 Abscess Culture - Preliminary Buttock Discharge Plan Discharge Disposition: Home, Self-Care Condition: Good Discharge Medications: New amoxicillin-pot clavulanate 875-125 mg tablet 1 tab PO Q12H Qty: 10 0RF Continued metformin 500 mg tablet 500 mg PO DAILY metoprolol succinate 50 mg tablet extended release 24 hr 50 mg PO BID Activity: resume usual activities as tolerated Diet: advance to your usual diet Patient Instructions: Amoxicillin (By mouth), Cellulitis (GEN), Abscess (GEN), Acute Wounds (GEN), Incision and Drainage (GEN) Activity Restrictions/Additional Instructions: Per Dr. Galicia... Patient should remove dressing and packing and shower/bath wash area daily, then repack wound.. Change buttock packing/dressing with 2 inch kerlix gauze, damp to dry; cover with ABD pads and tape. Forms: Portal Instructions Follow Up Appointments: Please call Thursday to schedule appointments: F/u with Dr. Pedraza in one week: F/u with Dr. Galicia in 2-3 weeks: Daily dressings at [facility] wound care: [phone] Galicia... Patient should remove dressing and packing and shower/bath wash area daily, then repack wound.. Change buttock packing/dressing with 2 inch kerlix gauze, damp to dry; cover with ABD pads and tape.
--- NOTE | 2023-02-04 15:49 | CM.DCFOLLOWU ---
Person spoke with:patient How are you feeling? well How is your pain? pain is better, voiced he is adjusting to the packing now Did you understand your discharge instructions? yes Do you have any questions about your discharge instructions? no Were you given any prescriptions at discharge? yes Were you able to get your prescriptions filled? yes Do you understand how to take your medications as ordered? yes Do you have any questions about your follow up appointment and do you plan to keep your follow up appointment?no questions, follow up with Dr. Galicia yesterday and has another apt Thursday with him and has follow up with PCP next week, healing is going well Is there anything else that you would like to discuss? no Questions/Comments/Concerns/Other:
== END 2023-01-31 14:15 | disposition home or self-care (01) | DRG 872 ==
LOC: ER 18:58 → MS 20:24
PROVIDERS: Physician Assistant; Surgery; Admitting Provider Internal Medicine; Emergency Provider Emergency Medicine; PCP Family Medicine; Visit Provider Internal Medicine
DX: A41.01 Sepsis due to Methicillin susceptible Staphylococcus aureus (principal); L02.31 Cutaneous abscess of buttock; L03.317 Cellulitis of buttock; Z68.42 Body mass index [BMI] 45.0-49.9, adult; Z79.84 Long term (current) use of oral hypoglycemic drugs; I10 Essential (primary) hypertension; R73.03 Prediabetes; G47.33 Obstructive sleep apnea (adult) (pediatric); E66.01 Morbid (severe) obesity due to excess calories; Z79.899 Other long term (current) drug therapy
CPT/HCPCS: 36415; 74177; 80048; 80053; 81001; 82948; 83036; 83605; 85025; 85652; 86140; 87070; 87150; 87186; 87205; 93005; 96365; 96366; 96367; 96368; 96375; 96376; 99285; 99999; C1887; J1170; J2704; J3370; Q3014; Q9967

== ENCOUNTER 2024-07-07 03:03 | Emergency (ER) | payer OTHER, SELFPAY ==
[2024-07-07] VITALS (26 sets, daily range): BP systolic 120–154; BP diastolic 67–106; PULSE 67–90; TEMP 36.9; O2SAT 93–100; BMI 53.2
--- NOTE | 2024-07-07 03:21 | ECG_ITS ---
The [facility] Test Date: 2024-07-07 Pat Name: JAMIE STOUT Department: Room: - Gender: Male In[employer]: : 1985 Requested By: GENE FORRESTER Order Number: [id number] Reading MD: VINOD BOLTON Measurements Intervals [place] Rate: 78 P: 57 OK: 162 QRS: 60 QRSD: 88 T: 42 QT: 342 QTc: 375 Interpretive Statements 1100 Sinus rhythm 9110 normal ECG Compared to ECG 01/29/2023 19:32:08 No significant changes Electronically Signed On 07-07-2024 6:45:26 EST by VINOD BOLTON
--- NOTE | 2024-07-07 03:22 | ED_ITS ---
HPI HPI - General Adult General Chief complaint: Dizziness Stated complaint: NAUSEA, DIZZINESS Time Seen by Provider: 07/07/24 03:09 Source: patient Mode of arrival: walk-in Limitations: no limitations History of Present Illness HPI narrative: 38-year-old male presents for feeling lightheaded and having a high blood sugar. He is diabetic and has not missed any of his doses of metformin. Tonight he felt lightheaded and he checked his sugar and it was greater than 500. He has not missed any doses of his medication and did not eat anything unusual. He has not had any illnesses and has not had any symptoms of fever or abdominal pain. The only time his blood sugar was that high was when he was diagnosed with diabetes initially Related Data Home Medications ?Medication ?Instructions ?Recorded ?Confirmed metformin 500 mg tablet 500 mg PO DAILY 01/29/23 07/07/24 metoprolol succinate 50 mg 50 mg PO BID 01/29/23 07/07/24 tablet,extended release 24 hr omeprazole 40 mg capsule,delayed mg 07/07/24 release Previous Rx's ?Medication ?Instructions ?Recorded amoxicillin 875 mg-potassium 1 tab PO Q12H #10 tabs 01/31/23 clavulanate 125 mg tablet Allergies Allergy/AdvReac Type Severity Reaction Status Date / Time promethazine (From Phenergan) Allergy Intermediate Hallucinati Verified 07/07/24 03:15 ng Opioid HPI Opioid Management Most Recent Opioid Data: Last Pain Scale 7 01/31/23 12:34 01/31/23 Review of Systems ROS Narrative A ten point review of systems is negative except as noted above. PFSH [facility], [facility] Medical History (Updated 07/07/24 @ 06:05 by Horace Grimes MD) ROSEANN (obstructive sleep apnea) ?G47.33 - Obstructive sleep apnea (adult) (pediatric) (ICD-10) Morbid obesity ?E66.01 - Morbid (severe) obesity due to excess calories (ICD-10) History of prediabetes ?Z87.898 - Personal history of other specified conditions (ICD-10) Cellulitis and abscess of buttock ?L02.31 - Cutaneous abscess of buttock (ICD-10) ?L03.317 - Cellulitis of buttock (ICD-10) HTN (hypertension) ?I10 - Essential (primary) hypertension (ICD-10) Kidney stone on left side ?N20.0 - Calculus of kidney (ICD-10) Diet-controlled diabetes mellitus ?E11.9 - Type 2 diabetes mellitus without complications (ICD-10) Pain in rectum ?K62.89 - Other specified diseases of anus and rectum (ICD-10) Cellulitis ?L03.90 - Cellulitis, unspecified (ICD-10) Phlegmon ?L02.91 - Cutaneous abscess, unspecified (ICD-10) Family History Grandfather Family history of cancer Father Family history of diabetes mellitus Family history of hypertension Social History Smoking status: Never smoker Non-prescribed substance use: denies use Previous occupational history: construction project mgr Known occupational exposures/hazards: No Highest level of school completed/degree received: 12th grade, no diploma Do you want help with school or training: No Are you now , , , , never or living with a partner: living with partner In a typical week, how many times do you talk on the telephone with family, friends, or neighbors: 3 or more times per week How often do you get together with friends or relatives: 3 or more times per week How often do you attend christian or mu-ism services: never Do you belong to any clubs or organizations such as christian groups unions, fraternal or athletic groups, or school groups: no Total score: 2 Score interpretation: A score of greater than or equal to 2 indicates the lowest level of social isolation. Little interest or pleasure in doing things: not at all Feeling down, depressed, or hopeless: not at all Feel stressed/tense/nervous/anxious/difficulty sleeping: not at all Life stressors: unknown source of stress Due to disability, difficulty making decisions: No Do you think of yourself as: straight/heterosexual Gender Identity: male Exam Narrative Exam Narrative: Nurses note and vital signs reviewed and patient is not hypoxic. General: The patient appears well and in no apparent distress. Patient is resting comfortably on cart. Skin: Warm, dry, no pallor noted. There is no rash noted. Head: Normocephalic, atraumatic Eye: Normal conjunctiva, no drainage Ears, Nose, Mouth, and Throat: oral mucosa is moist. Nares patent. Cardiovascular: Regular Rate and Rhythm, not tachycardic Respiratory: Patient is in no distress, no accessory muscle use, lungs are clear to auscultation, no wheezing, rales or rhonchi Back: non-tender GI: no tenderness to palpation, no masses appreciated. No rebound, guarding, or rigidity noted. Musculoskeletal: The patient has no evidence of calf tenderness, no pitting edema, symmetrical pulses noted bilaterally Neurological: A&O normal speech Psychiatric: Cooperative Constitutional Vital Signs, click to edit/add: Last Vital Signs Temp 98.4 F 07/07/24 03:08 Pulse 82 07/07/24 04:06 Resp 14 07/07/24 04:06 BP 120/67 07/07/24 04:06 Pulse Ox 98 07/07/24 04:06 O2 Del Method Room Air 07/07/24 04:06 Course Vital Signs Vital signs: Vital Signs Temperature 98.4 F 07/07/24 03:08 Pulse Rate 90 07/07/24 03:08 Respiratory Rate 18 07/07/24 03:08 Blood Pressure 154/100 H 07/07/24 03:08 Pulse Oximetry 99 07/07/24 03:08 Oxygen Delivery Method Room Air 07/07/24 03:08 Temperature 98.4 F 07/07/24 03:08 Pulse Rate 82 07/07/24 04:06 Respiratory Rate 14 07/07/24 04:06 Blood Pressure 120/67 07/07/24 04:06 Pulse Oximetry 98 07/07/24 04:06 Oxygen Delivery Method Room Air 07/07/24 04:[address] [facility] Narrative Medical decision making narrative: His workup is negative and he feels much better now that his blood sugars coming down. He was given IV fluids and IV insulin. He is going to call his doctor for follow-up appointment. Treatment diagnosis and follow-up were discussed with the patient. I have no clinical suspicion of acute intracranial pathology. Differential Diagnosis Differential Diagnosis: Dehydration, anemia, hypoglycemia, hyperglycemia Lab Data Lab results reviewed: Yes I reviewed the patient's lab results Labs: Lab Results 07/07/24 07/07/24 07/07/24 Range/Units 03:30 03:31 03:35 WBC 8.6 (4.0-11.0) 10^3/uL RBC 5.28 (4.70-6.10) 10^6/uL Hgb 15.3 (14.0-18.0) g/dL Hct 43.4 (42.0-54.0) % MCV 82.2 (80.0-94.0) fL MCH 29.0 (25.9-34.0) pg MCHC 35.3 H (29.9-35.2) g/dL RDW 12.9 (11.0-15.0) % Plt Count 307 (150-450) 10^3/uL MPV 10.2 (9.5-13.5) fL Neut % (Auto) 62.3 (43.0-75.0) % Lymph % (Auto) 25.8 (20.5-60.0) % [place] % (Auto) 6.3 (1.7-12.0) % Eos % (Auto) 3.2 (0.9-7.0) % Baso % (Auto) 1.1 (0.2-2.0) % Neut # (Auto) 5.3 (1.4-6.5) 10^3/uL Lymph # (Auto) 2.2 (1.2-3.8) 10^3/uL Victoria # (Auto) 0.5 (0.3-0.8) 10^3/uL Eos # (Auto) 0.3 (0.0-0.7) 10^3/uL Baso # (Auto) 0.1 (0.0-0.1) 10^3/uL Abs Immat Gran (auto) 0.11 H (0.00-0.03) 10^3/uL Imm/Tot Granulo (auto) 1.3 H (0.0-0.5) % VBG pH 7.416 (7.330-7.430) VBG pCO2 46.1 (40.0-52.0) mmHg Sodium 132 L (136-145) mmol/L Potassium 4.0 (3.5-5.1) mmol/L Chloride 93 L (98-107) mmol/L Carbon Dioxide 29.7 (21.0-32.0) mmol/L Anion Gap 13.3 BUN 10.0 (7.0-18.0) mg/dL Creatinine 1.05 (0.70-1.30) mg/dL Est GFR ( Amer) >60 (>=60 mL/min/1.73m^2) Est GFR (Non-Af Amer) >60 (>=60 mL/min/1.73m^2) BUN/Creatinine Ratio 9.5 Glucose 382 H (74-106) mg/dL Calcium 9.4 (8.5-10.1) mg/dL Troponin I High Sens <4.0 L (4.0-76.1) pg/mL Urine Color Lt. yellow (YELLOW) Urine Clarity Clear (CLEAR) Urine pH 6.0 (5.0-9.0) Ur Specific [place] 1.015 (1.005-1.025) Urine Protein Trace (NEG/TRACE) mg/dL Urine Glucose (UA) >=1000 A (NEGATIVE) mg/dL Urine Ketones Negative (NEGATIVE) mg/dL Urine Occult Blood Negative (NEGATIVE) Urine Nitrite Negative (NEGATIVE) Urine Bilirubin Negative (NEGATIVE) Urine Urobilinogen 0.2 (0.2-1.0) EU/dL Ur Leukocyte Esterase Negative (NEGATIVE) Urine RBC None seen (0-2) #/HPF Urine WBC 0-2 A (NONE SEEN) #/HPF Ur Squamous Epith Cells Rare (NONE/RARE) #/LPF Urine Crystals None seen (None Seen) #/HPF Urine Bacteria None seen (NONE SEEN) #/HPF Urine Casts None seen (NONE SEEN) #/LPF Urine Mucus None seen (NONE SEEN) Acetone, Qual Negative (NEGATIVE) POC Glucose 365 H (74-106) mg/dL 07/07/24 Range/Units 05:59 WBC (4.0-11.0) 10^3/uL RBC (4.70-6.10) 10^6/uL Hgb (14.0-18.0) g/dL Hct (42.0-54.0) % MCV (80.0-94.0) fL MCH (25.9-34.0) pg MCHC (29.9-35.2) g/dL RDW (11.0-15.0) % Plt Count (150-450) 10^3/uL MPV (9.5-13.5) fL Neut % (Auto) (43.0-75.0) % Lymph % (Auto) (20.5-60.0) % [place] % (Auto) (1.7-12.0) % Eos % (Auto) (0.9-7.0) % Baso % (Auto) (0.2-2.0) % Neut # (Auto) (1.4-6.5) 10^3/uL Lymph # (Auto) (1.2-3.8) 10^3/uL [place] # (Auto) (0.3-0.8) 10^3/uL Eos # (Auto) (0.0-0.7) 10^3/uL Baso # (Auto) (0.0-0.1) 10^3/uL Abs Immat Gran (auto) (0.00-0.03) 10^3/uL Imm/Tot Granulo (auto) (0.0-0.5) % VBG pH (7.330-7.430) VBG pCO2 (40.0-52.0) mmHg Sodium (136-145) mmol/L Potassium (3.5-5.1) mmol/L Chloride (98-107) mmol/L Carbon Dioxide (21.0-32.0) mmol/L Anion Gap BUN (7.0-18.0) mg/dL Creatinine (0.70-1.30) mg/dL Est GFR ( Amer) (>=60 mL/min/1.73m^2) Est GFR (Non-Af Amer) (>=60 mL/min/1.73m^2) BUN/Creatinine Ratio Glucose (74-106) mg/dL Calcium (8.5-10.1) mg/dL Troponin I High Sens (4.0-76.1) pg/mL Urine Color (YELLOW) Urine Clarity (CLEAR) Urine pH (5.0-9.0) Ur Specific [place] (1.005-1.025) Urine Protein (NEG/TRACE) mg/dL Urine Glucose (UA) (NEGATIVE) mg/dL Urine Ketones (NEGATIVE) mg/dL Urine Occult Blood (NEGATIVE) Urine Nitrite (NEGATIVE) Urine Bilirubin (NEGATIVE) Urine Urobilinogen (0.2-1.0) EU/dL Ur Leukocyte Esterase (NEGATIVE) Urine RBC (0-2) #/HPF Urine WBC (NONE SEEN) #/HPF Ur Squamous Epith Cells (NONE/RARE) #/LPF Urine Crystals (None Seen) #/HPF Urine Bacteria (NONE SEEN) #/HPF Urine Casts (NONE SEEN) #/LPF Urine Mucus (NONE SEEN) Acetone, Qual (NEGATIVE) POC Glucose 290 H (74-106) mg/dL ECG Data Attestation: I personally reviewed and interpreted this ECG as follows: (EKG on my interpretation shows no acute findings) Discharge Plan Discharge Chief Complaint: Dizziness Clinical Impression: Dizziness, Acute hyperglycemia Patient Disposition: Home, Self-Care Time of Disposition Decision: 06:04 Condition: Good Mode of Transportation: Private Vehicle Prescriptions / Home Meds: No Action metformin 500 mg tablet 500 mg PO DAILY metoprolol succinate 50 mg tablet extended release 24 hr 50 mg PO BID amoxicillin-pot clavulanate 875-125 mg tablet 1 tab PO Q12H Qty: 10 0RF omeprazole 40 mg capsule,delayed release(DR/EC) Print Language: [place] Instructions: Dizziness (ED), Diabetic Hyperglycemia (ED) Referrals: Tree Pedraza MD [Primary Care Provider] - 1 week
[2024-07-07] MEDS: ONDANSETRON PF 4 MG/2 ML VIAL IV (03:30)
[2024-07-07] MEDS: 0.9 % SODIUM CHLORIDE 1,000 ML 1000 ML IV (03:30)
[2024-07-07 03:35] LABS: Glucometer 365 mg/dL (74-106)
[2024-07-07 03:48] LABS: PCO2 VBG 46.1 mmHg (40.0-52.0); pH VBG 7.416 (7.330-7.430)
[2024-07-07 03:57] LABS: Bilirubin Urine NEGATIVE (NEGATIVE); Blood Urine NEGATIVE (NEGATIVE); Clarity Urine CLEAR (CLEAR); Color Urine LT. YELLOW (YELLOW); Glucose Urine UA >=1000 mg/dL (NEGATIVE); Ketones Urine NEGATIVE (NEGATIVE); Leukocyte Esterase Urine NEGATIVE (NEGATIVE); Nitrite Urine NEGATIVE (NEGATIVE); Protein Urine TRACE mg/dL (NEG/TRACE); Specific Gravity Urine 1.015 (1.005-1.025); Urobilinogen Urine 0.2 EU/dL (0.2-1.0)
[2024-07-07 04:02] LABS: Basophils Absolute Auto 0.1 10^3/uL (0.0-0.1); Basophils Percent Auto 1.1 % (0.2-2.0); Eosinophils Absolute Auto 0.3 10^3/uL (0.0-0.7); Eosinophils Percent Auto 3.2 % (0.9-7.0); Hematocrit 43.4 % (42.0-54.0); Hemoglobin 15.3 g/dL (14.0-18.0); Immature Granulocytes Abs Auto 0.11 10^3/uL (0.00-0.03); Immature Granulocytes Pct Auto 1.3 % (0.0-0.5); Lymphocytes Absolute Auto 2.2 10^3/uL (1.2-3.8); Lymphocytes Percent Auto 25.8 % (20.5-60.0); Mean Corpuscular HGB Conc 35.3 g/dL (29.9-35.2); Mean Corpuscular Volume 82.2 fL (80.0-94.0); Mean Platelet Volume 10.2 fL (9.5-13.5); Monocytes Absolute Auto 0.5 10^3/uL (0.3-0.8); Monocytes Percent Auto 6.3 % (1.7-12.0); Neutrophils Absolute Auto 5.3 10^3/uL (1.4-6.5); Neutrophils Percent Auto 62.3 % (43.0-75.0); Platelet Count 307 10^3/uL (150-450); Red Blood Count 5.28 10^6/uL (4.70-6.10); Red Cell Distribution Width 12.9 % (11.0-15.0); White Blood Count 8.6 10^3/uL (4.0-11.0)
[2024-07-07 04:10] LABS: Acetone NEGATIVE (NEGATIVE)
[2024-07-07 04:15] LABS: Anion Gap 13.3; BUN Creatinine Ratio 9.5; Calcium 9.4 mg/dL (8.5-10.1); Carbon Dioxide 29.7 mmol/L (21.0-32.0); Chloride 93 mmol/L (98-107); Estimated GFR (African America >60 (>=60 mL/min/1.73m^2); Estimated GFR (Non-African Ame >60 (>=60 mL/min/1.73m^2); Glucose 382 mg/dL (74-106); Sodium 132 mmol/L (136-145)
[2024-07-07 04:20] LABS: Troponin I High Sensitivity <4.0 pg/mL (4.0-76.1)
[2024-07-07 04:31] LABS: RBC Urine NONE SEEN #/HPF (0-2); WBC Urine 0-2 #/HPF (NONE SEEN)
[2024-07-07 04:32] LABS: Bacteria Urine NONE SEEN #/HPF (NONE SEEN); Cast Seen? NONE SEEN #/LPF (NONE SEEN); Crystals Seen? None Seen #/HPF (None Seen); Mucus Urine NONE SEEN (NONE SEEN); Squamous Epithelial Cell Urine RARE #/LPF (NONE/RARE)
[2024-07-07] MEDS: INSULIN REGULAR, HUMAN (100 UNIT/ML) 10 ML MDV 10 UNIT IV (05:14)
[2024-07-07 06:01] LABS: Glucometer 290 mg/dL (74-106)
== END 2024-07-07 06:13 | disposition home or self-care (01) ==
PROVIDERS: Emergency Provider Emergency Medicine; PCP Family Medicine
DX: R42 Dizziness and giddiness (principal); E11.65 Type 2 diabetes mellitus with hyperglycemia; Z79.84 Long term (current) use of oral hypoglycemic drugs
CPT/HCPCS: 36415; 80048; 81001; 82009; 82800; 82948; 84484; 85025; 93005; 96361; 96374; 99284; J1817; J2405

== ENCOUNTER 2024-08-15 01:52 | Emergency (ER) | payer BC, SELFPAY ==
[2024-08-15] VITALS (7 sets, daily range): BP systolic 139–154; BP diastolic 76–92; PULSE 71; TEMP 36.9; O2SAT 98–99; BMI 46.7
--- OUTSIDE RECORDS SUMMARY | 2024-08-15 01:59 | XMS_ITS | CCD ---
Author Organization [facility] Care Team Providers Care Quality Control Assessor Name Role Phone PAKO ., DR DARLING Admitting Unavailable NADERER, DR TREE Perez Primary Care Unavailable HAY ., DR DARLING Consulting Unavailable HAY ., DR DARLING Attending Unavailable CHILO, TOREY Consulting Unavailable REED, DR TUTU Ward Admitting Unavailable REED, DR TUTU Ward Consulting Unavailable REED, DR TUTU Ward Attending Unavailable NADERESylvia, DR TREE Perez Primary Care Unavailable HAY ., DR DARLING Admitting Unavailable HAY ., DR DARLING Consulting Unavailable HAY ., DR DARLING Attending Unavailable NADERER, DR TREE Perez Primary Care Unavailable POLICAROCARLYN Consulting Unavailable NADERER, DR TREE Perez Admitting Unavailable NADERER, DR TREE Perez Primary Care Unavailable NADERESylvia, DR TREE Perez Consulting Unavailable NADERESylvia, DR TREE Perez Attending Unavailable NADERER, DR TREE Perez Admitting Unavailable NADERER, DR TREE Perez Primary Care Unavailable NADERER, DR TREE Perez Consulting Unavailable NADERESylvia, DR TREE Perez Attending Unavailable NADERESylvia, TREE Primary Care Physician [phone] Migue GALICIA Attending Unavailable NILL, Migue Ward Attending Unavailable NILL, Migue Ward Attending Unavailable NILL, Migue Ward Attending Unavailable Tree Forrester MD Primary Care Provider TREE FORRESTER Attending Unavailable Tree Forrester MD Primary Care Provider [phone] Allergies Allergy Classification Reported Allergen(s) Allergy Type Date of Onset Reaction(s) Facility (1 source) [place] Drug Allergy 06-10-2014 [facility] Repository (3 sources) Promethazine; Translations: [promethazine] Drug Allergy 12-24-2020 Unknown General Surgery [place] Medications Current Medications Medication Drug Class(es) Dates Sig (Normalized) Sig (Original) atorvastatin 40 mg oral tablet (1 source) HMG-CoA Reductase Inhibitor Start: 07-14-2024 take 1 tablet by mouth at bedtime atorvastatin (Lipitor) 40 MG tablet Indications: Dyslipidemia (CMS/HCC) Take 1 tablet (40 mg) by mouth at bedtime 30 tablet 5 07/14/2024 Active Start: 07-14-2024 take 1 tablet by najma th at bedtime atorvastatin (Lipitor) 40 MG tablet Indications: Dyslipidemia (CMS/HCC) Take 1 tablet (40 mg) by mouth at bedtime 30 tablet 5 07/14/2024 Active glipiZIDE 10 mg oral tablet (5 sources) Sulfonylurea Start: 07-14-2024 take 1 tablet by mouth in the morning glipiZIDE (Glucotrol) 10 MG tablet Indications: Type 2 diabetes mellitus with hyperglycemia, without long-term current use of insulin (CMS/HCC) Take 1 tablet (10 mg) by mouth in the morning and 1 tablet (10 mg) in the evening. Take before meals. 60 tablet 5 07/14/2024 Active Start: 07-29-2022 End: 07-14-2024 take 1 tablet by mouth in the morning glipiZIDE (Glucotrol) 10 MG tablet Take 10 mg by mouth in the morning. 07/29/2022 07/14/2024 Discontinued (Reorder) 24 hr metFORMIN hydrochloride 500 mg extended release oral tablet (7 sources) Biguanide Start: 07-12-2024 take 1 tablet by mouth every twenty-four hours in the morning metFORMIN XR (Glucophage-XR) 500 MG 24 hr tablet Indications: Type 2 diabetes mellitus with hyperglycemia, without long-term current use of insulin (CMS/HCC) Take 1 tablet (500 mg) by mouth in the morning and 1 tablet (500 mg) before bedtime. 60 tablet 5 07/12/2024 Active Start: 10-14-2023 End: 10-13-2024 take 1 tablet by mouth once daily metFORMIN XR (Glucophage-XR) 500 MG 24 hr tablet Indications: Type 2 diabetes mellitus with hyperglycemia, without long-term current use of insulin (CMS/HCC) Take 1 tablet (500 mg) by mouth Daily 30 tablet 11 10/14/2023 07/12/2024 Discontinued (Reorder) Start: 02-03-2023 take 1 tablet by najma th once daily metformin 500 mg ER Tab 500 mg = 1 tab(s), Oral, Daily, Refills(s) 0 Start Date: 02/03/23 Status: Ordered 24 hr metoprolol succinate 50 mg extended release oral tablet (6 sources) beta-Adrenergic Aditya Start: 05-23-2024 take 1 tablet by mouth once daily metoprolol succinate XL (Toprol-XL) 50 MG 24 hr tablet Indications: Essential hypertension, benign (CMS/HCC) TAKE 1 TABLET BY MOUTH ONCE DAILY 90 tablet 05/23/2024 Active Start: 02-03-2023 metoprolol 50 mg ER Tab as directed, Refills(s) 0 Start Date: 02/03/23 Status: Ordered omeprazole 40 mg delayed release oral capsule (6 sources) Proton Pump Inhibitor Start: 05-23-2024 take 1 capsule by mouth once daily omeprazole (PriLOSEC) [address] capsule Indications: Gastroesophageal reflux disease without esophagitis TAKE 1 CAPSULE BY MOUTH ONCE DAILY 90 capsule 05/23/2024 Active Start: 02-03-2023 take 1 capsule by [facility] once daily omeprazole 20 mg Cap-DR 20 mg = 1 cap(s), Oral, Daily, Refills(s) 0 Start Date: 02/03/23 Status: Ordered Completed/Discontinued Medications Medication Drug Class(es) Dates Sig (Normalized) Sig (Original) oxyCODONE hydrochloride 5 mg oral tablet (3 sources) Opioid Agonist Start: 01-31-2023 End: 07-12-2024 take 1 tablet by mouth every six hours as needed for pain oxyCODONE (Roxicodone) 5 MG immediate release tablet Take 5 mg by mouth every 6 (six) hours if needed for severe pain 01/31/2023 07/12/2024 Discontinued Problems Active Problems Problem Classification Problem Date Documented Da te Episodic/Chronic Abdominal pain (1 source) Unspecified abdominal pain; Translations: [UNSPECIFIED ABDOMINAL PAIN] Onset: 09-25-2022 Episodic Diabetes mellitus with complications (11 sources) Type 2 diabetes mellitus with hyperglycemia; Translations: [Hyperglycemia due to type 2 diabetes mellitus] Onset: 04-21-2022 Chronic Diabetes mellitus without complication (2 sources) Diabetes mellitus 02-03-2023 Chronic Disorders of lipid metabolism (4 sources) Dyslipidemia; Translations: [Hyperlipidemia, unspecified] Onset: 07-12-2024 07-12-2024 Chronic Essential hypertension (8 sources) Essential (primary) hypertension; Translations: [Hypertensive disorder] Onset: 04-21-2022 02-03-2023 Chronic Intestinal infection (1 source) Rotaviral enteritis; Translations: [ROTAVIRAL ENTERITIS] Onset: 09-25-2022 Episodic Nausea and vomiting (3 sources) Nausea with vomiting, unspecified; Translations: [NAUSEA WITH VOMITING UNSPECIFIED] Onset: 09-23-2022 Episodic Nutritional deficiencies (3 sources) Vitamin D deficiency; Translations: [Vitamin D deficiency, unspecified] Onset: 07-12-2024 07-12-2024 Chronic Other aftercare (1 source) 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; Translations: [SENIOR LIVING USE ORAL HYPOGLYCEMIC DX] Onset: 09-25-2022 Episodic Other aftercare (1 source) Other longterm (current) drug therapy; Translations: [[employer] CURRENT DRUG THERAPY] Onset: 09-25-2022 Episodic Other nervous system disorders (1 source) Other chronic pain; Translations: [OTHER CHRONIC PAIN] Onset: 04-21-2022 Chronic Other nutritional; endocrine; and metabolic disorders (3 sources) Body mass index 40+ - severely obese; Translations: [Body mass index (BMI) 50.0-59.9, adult] Onset: 02-03-2023 Chronic Other nutritional; endocrine; and metabolic disorders (2 sources) Morbid obesity 02-03-2023 Chronic Other nutritional; endocrine; and metabolic disorders (5 sources) Severe obesity; Translations: [Class 3 severe obesity due to excess calories with serious comorbidity and body mass index (BMI) of 45.0 to 49.9 in adult ([facility])] Onset: 07-12-2024 07-12-2024 Chronic Residual codes; unclassified (5 sources) Obstructive sleep apnea syndrome; Translations: [Obstructive sleep apnea (adult) (pediatric)] Onset: 07-12-2024 07-12-2024 Chronic Residual codes; unclassified (1 source) Acquired absence of kidney; Translations: [ACQUIRED ABSENCE OF KIDNEY] Onset: 09-25-2022 Episodic Skin and subcutaneous tissue infections (4 sources) Abscess of buttock; Translations: [Cutaneous abscess of buttock] Onset: 02-03-2023 Episodic Past or Other Problems Problem Classification Problem Date Documented Date Episodic/Chronic Calculus of urinary tract (1 source) Personal history of urinary calculi; Translations: [PERSONAL HISTORY OF URINARY CALCULI] Onset: 10-22-2021 Episodic Noninfectious gastroenteritis (1 source) Noninfective gastroenteritis and colitis, unspecified; Translations: [NONINFECTIVE GE AND COLITIS UNS] Onset: 10-22-2021 Episodic Other non-traumatic joint disorders (4 sources) Pain in left knee; Translations: [PAIN IN LEFT KNEE] Onset: 04-14-2022 Episodic Results Test Name Value Interpretation Reference Range Facility ECG 3 Leadon 07-07-2024 [facility] General Surgery Office/Clini c Noteon 02-20-2023 General Surgery Office/Clinic Note Chief Complaint f/u buttock abscess HPI Staff Presents to follow up right buttock abscess. Stopped packing two-three days ago as area has filled in. Covering area daily with dressing. Scant brown discharge when dressing removed. Denies discomfort or soreness. Review of Systems ROS - Provider Constitutional: no fever, no sweats, no weight loss. Eyes: no glasses, no blurred vision, no visual loss. ENMT: no dentures, no hoarseness, no swallowing difficulties, no hearing loss, no ear infection(s), no nose bleeds. Cardiovascular: normal blood pressure, no chest pain, regular heartbeat, no heart murmur. Respiratory: no shortness of breath, no cough, no asthma, no wheezing. Gastrointestinal: no nausea, no vomiting, no diarrhea, no constipation, no blood in stool, no change in bowel habits, no abdominal pain, no hepatitis. Genitourinary: no kidney stones, no urine infection, no dysuria. Musculoskeletal: no pain, no weakness. Skin: no changing moles, no rash, no skin lumps. Neurologic: no seizures, no epilepsy, no headache. Psychiatric: no emotional or psychiatric problem. Heme/Lymph: no bleeding problems, no anemia, no blood clots, no transfusions. Allergy/Immunologic: no swollen lymph nodes/glands, no IV drug abuse. Other: Additional ROS info: Except as noted in the above Review of Systems and in the History of Present Illness, all other systems have been reviewed and are negative or noncontributory. Physical Exam skin: abscess cavity filled in, 2 cm open area covered with clean granulation tissue. Assessment/Plan 1. Abscess of right buttock (L02.31: Cutaneous abscess of buttock) healed; open area cauterized with silver nitrate; tolerated well, keep area clean and dry; call with problems/questions. Follow-up With When Contact Information Migue GALICIA MD, YANELIS Only if needed [address] [place] [address]- Additional Instructions: Problem List/Past Medical History Ongoing Abscess of right buttock BMI 50.0-59.9, adult Diabetes HTN (hypertension) Morbid obesity Historical No qualifying data Procedure/Surgical History Incision and drainage of abscess (01/30/2023), Partial nephrectomy. Medications metformin 500 mg ER Tab, 500 mg= 1 tab(s), Oral, Daily metoprolol 50 mg ER Tab omeprazole 20 mg Cap-DR, 20 mg= 1 cap(s), Oral, Daily Allergies promethazine (Unknown) Social History Alcohol - Denies Alcohol Use, 02/03/2023 Substance Abuse - Denies Substance Abuse, 02/03/2023 Tobacco Never (less than 100 in lifetime) Tobacco Use:. Never Smokeless Tobacco Use:., 02/03/2023 Family History Diabetes mellitus type 2: Father. Hypertension: Mother and Father. [facility] Comment on above: Result Comment: Elec tronically Signed By: Migue GALICIA MD\.br\Date and Time Signed: 02/20/23 15:23 EDT Ambulatory Visit Summaryon 0 02-10-2023 Ambulatory Visit Summary JAMIE STOUT :1985 Visit Date:02/10/2023 Ambulatory Visit Instructions Your Care Team Attending Physician - Migue GALICIA MD Primary Care Physician - TREE FORRESTER MD This Is Your Medications List metformin (metformin 500 mg ER Tab) metoprolol (metoprolol 50 mg ER Tab) omeprazole (omeprazole 20 mg Cap-DR) Procedures Performed Incision and drainage of abscess (01/30/2023), Partial nephrectomy. What to do next Scheduled Follow-Up Appointments Thursday 3:00 PM EDT With: Migue GALICIA MD Where: General Surgery Frida/Raina Sarg[facility] General Surgery Office/Clini c Noteon 02-10-2023 General Surgery Office/Clinic Note Chief Complaint post operative follow up HPI Staff 11 day post operative follow up post I/D right buttock abscess. Packing daily with less amount of packing required. Small amount of bleeding with removal of packing. Minimal discomfort, scant use of Ibuprofen. History of Present Illness here for f/u of right buttock abscess; denies pain, no drainage; packing area daily, bleeding when packing removed. Review of Systems ROS - Provider Constitutional: no fever, no sweats, no weight loss. Eyes: no glasses, no blurred vision, no visual loss. ENMT: no dentures, no hoarseness, no swallowing difficulties, no hearing loss, no ear infection(s), no nose bleeds. Cardiovascular: normal blood pressure, no chest pain, regular heartbeat, no heart murmur. Respiratory: no shortness of breath, no cough, no asthma, no wheezing. Gastrointestinal: no nausea, no vomiting, no diarrhea, no constipation, no blood in stool, no change in bowel habits, no abdominal pain, no hepatitis. Genitourinary: no kidney stones, no urine infection, no dysuria. Musculoskeletal: no pain, no weakness. Skin: no changing moles, no rash, no skin lumps. Neurologic: no seizures, no epilepsy, no headache. Psychiatric: no emotional or psychiatric problem. Heme/Lymph: no bleeding problems, no anemia, no blood clots, no transfusions. Allergy/Immunologic: no swollen lymph nodes/glands, no IV drug abuse. Other: Additional ROS info: Except as noted in the above Review of Systems and in the History of Present Illness, all other systems have been reviewed and are negative or noncontributory. Physical Exam skin: abscess cavity 2 x 3 cm, clean granulation tissue, no purulence. Assessment/Plan 1. Abscess of right buttock (L02.31: Cutaneous abscess of buttock) continue daily packing; can use 1/2 inch plain nugauze; f/u in 10-14 days; call sooner if problems/questions; ok to return to work next week. Follow-up No qualifying data available Problem List/Past Medical History Ongoing Abscess of right buttock BMI 50.0-59.9, adult Diabetes HTN (hypertension) Morbid obesity Historical No qualifying data Procedure/Surgical History Incision and drainage of abscess (01/30/2023), Partial nephrectomy. Medications metformin 500 mg ER Tab, 500 mg= 1 tab(s), Oral, Daily metoprolol 50 mg ER Tab omeprazole 20 mg Cap-DR, 20 mg= 1 cap(s), Oral, Daily Allergies promethazine (Unknown) Social History Alcohol - Denies Alcohol Use, 02/03/2023 Substance Abuse - Denies Substance Abuse, 02/03/2023 Tobacco Never (less than 100 in lifetime) Tobacco Use:. Never Smokeless Tobacco Use:., 02/03/2023 Family History Diabetes mellitus type 2: Father. Hypertension: Mother and Father. [facility] Comment on above: Result Comment: Elec tronically Signed By: FRIDA CHU, Migue Ward\.br\Date and Time Signed: 02/10/23 16:36 EDT Provider Letteron 02-10-2023 Provider Letter February 10, [address] [address] : 1985 To Whom It May Concern, Please excuse the above named person from work 02/11/23-02/16/23. May return to work without restrictions 02/17/23. Sincerely, Dr. Migue Galicia MD General Surgery [facility] Facesheeton 02-04-2023 Facesheet [id number]# 1.00CD:127 [facility] Consultation Noteon 02-04-20 Consultation Note [id number]# 1.00CD:127 [facility] General Surgery Office/Clini c Noteon 02-03-2023 General Surgery Office/Clinic Note HPI Staff 4 day post operative follow up post I/D and debridement of right buttock abscess completed while in-patient at [facility]. Significant other packing daily without difficulty. Reports scant brown discharge with removing of packing. Minimal discomfort, taking Oxycodone prior to packing. Denies fever. Continues on Augmentin. History of Present Illness 4 days s/p drainage right buttock abscess; packing area daily; pain improved, no drainage; no fevers. on Augmentin; cx with pansensitive Staph Aureus. Review of Systems PHQ Score Initial Depression Screen Score: 0 ROS - Provider Constitutional: no fever, no sweats, no weight loss. Eyes: no glasses, no blurred vision, no visual loss. ENMT: no dentures, no hoarseness, no swallowing difficulties, no hearing loss, no ear infection(s), no nose bleeds. Cardiovascular: normal blood pressure, no chest pain, regular heartbeat, no heart murmur. Respiratory: no shortness of breath, no cough, no asthma, no wheezing. Gastrointestinal: no nausea, no vomiting, no diarrhea, no constipation, no blood in stool, no change in bowel habits, no abdominal pain, no hepatitis. Genitourinary: no kidney stones, no urine infection, no dysuria. Musculoskeletal: no pain, no weakness. Skin: no changing moles, no rash, no skin lumps. Neurologic: no seizures, no epilepsy, no headache. Psychiatric: no emotional or psychiatric problem. Heme/Lymph: no bleeding problems, no anemia, no blood clots, no transfusions. Allergy/Immunologic: no swollen lymph nodes/glands, no IV drug abuse. Other: Additional ROS info: Except as noted in the above Review of Systems and in the History of Present Illness, all other systems have been reviewed and are negative or noncontributory. Physical Exam skin: right buttock with no cellulitis or induration; abscess cavity 1/2 the size it was originally; no purulence; clean granulation tissue. Assessment/Plan 1. Abscess of right buttock (L02.31: Cutaneous abscess of buttock) healing well; continue daily packing; follow up in 1 week; can have packing done in the hospital if more comfortable; but area is healing well; call with problems/questions. [place] [facility] [place] 2. BMI 50.0-59.9, adult (Z68.43: Body mass index [BMI] 50.0-59.9, adult) recommend diet and exercise. Follow-up No qualifying data available Problem List/Past Medical History Ongoing Abscess of right buttock BMI 50.0-59.9, adult Diabetes HTN (hypertension) Morbid obesity Historical No qualifying data Procedure/Surgical History Incision and drainage of abscess (01/30/2023), Partial nephrectomy. Medications metformin 500 mg ER Tab, 500 mg= 1 tab(s), Oral, Daily metoprolol 50 mg ER Tab omeprazole 20 mg Cap-DR, 20 mg= 1 cap(s), Oral, Daily Allergies promethazine (Unknown) Social History Alcohol - Denies Alcohol Use, 02/03/2023 Substance Abuse - Denies Substance Abuse, 02/03/2023 Tobacco Never (less than 100 in lifetime) Tobacco Use:. Never Smokeless Tobacco Use:., 02/03/2023 Family History Diabetes mellitus type 2: Father. Hypertension: Mother and Father. [facility] Comment on above: Result Comment: Elec tronically Signed By: FRIDA CHU, Migue Baig\Date and Time Signed: 02/03/23 16:39 EDT Operative Reporton Operative Report [id number] .00CD:127 [facility] Consultation Noteon 02-03-20 23 Consultation Note [id number] .00CD:127 [facility] Consultation Note [id number] .00CD:127 [facility] Lab Reportson 02-02-2023 Lab Reports [id number] .00CD:127 [facility] Lab Reports [id number] .00CD:127 [facility] Lab Reports [id number] .00CD:127 [facility] Lab Reports [id number] .00CD:127 [facility] Lab Reports [id number] .00CD:127 [facility] Lab Reports [id number] .00CD:127 [facility] CBC AUTO DIFFon 09-23-2022 BASO # 0.1 103/ul Normal 0.0-0.1 [facility] Comment on above: Performed By: #### C BC #### [facility] [address] [place] [address] Dr. Shiela Barlow Basophils/100 WBC (Bld) 0.6 % Normal 0.2-2.0 [facility] Comment on above: Performed By: #### C BC #### [facility] [address] [place] [address] Dr. Shiela Barlow EO # 0.3 103/ul Normal 0.0-0.7 [facility] Comment on above: Performed By: #### C BC #### [facility] [address] [place] [address] Dr. Shiela Barlow Eosinophils/100 WBC (Bld) 3.4 % Normal 0.9-7.0 [facility] Comment on above: Performed By: #### C BC #### [facility] [address] [place] [address] Dr. Shiela Barlow Erythrocyte distribution width (RBC) [Ratio] 13.8 % Normal 11.0-15.0 [facility] Comment on above: Performed By: #### C BC #### [facility] [address] [place] [address] Dr. Shiela Barlow Hematocrit (Bld) [Volume fraction] 41.2 % Critically low 42.0-54.0 [facility] Comment on above: Performed By: #### C BC #### [facility] [address] [place] [address] Dr. Shiela Barlow Hemoglobin (Bld) [Mass/Vol] 14.3 g/dL Normal 14.0-18.0 [facility] Comment on above: Performed By: #### C BC #### [facility] [address] [place] [address] Dr. Shiela Barlow IG # 0.04 10e3/ul Critically high 0.00-0.03 [facility] Comment on above: Performed By: #### C BC #### [facility] [address] [place] [address] Dr. Shiela Barlow IG % 0.5 % Normal 0.0-0.5 [facility] Comment on above: Performed By: #### C BC #### [facility] [address] [address] [address] Shiela Barlow LYMPH # 0.8 103/ul Critically low 1.2-3.8 [facility] Comment on above: Performed By: #### C BC #### [facility] [address] [place] [address] Dr. Shiela Barlow Lymphocytes/100 WBC (Bld) 9.4 % Critically low 20.5-60.0 [facility] Comment on above: Performed By: #### C BC #### [facility] [address] [place] [address] Dr. Shiela Barlow MANUAL DIFF REQ NO Normal [facility] Comment on above: Performed By: #### C BC #### [facility] [address] [place] [address] Dr. Sihela Barlow MCH (RBC) [Entitic mass] 28.2 pg Normal 25.9-34.0 [facility] Comment on above: Performed By: #### C BC #### [facility] [address] [place] [address] Dr. Shiela Barlow MCHC (RBC) [Mass/Vol] 34.7 g/dL Normal 29.9-35.2 [facility] Comment on above: Performed By: #### C BC #### [facility] [address] [place] [address] Dr. Shiela Barlow MCV (RBC) [Entitic vol] 81.3 fL Normal 80.0-94.0 [facility] Comment on above: Performed By: #### C BC #### [facility] [address] [place] [address] Dr. Shiela Barlow MONO # 0.4 103/ul Normal 0.3-0.8 [facility] Comment on above: Performed By: #### C BC #### [facility] [address] [place] [address] Dr. Shiela Barlow Monocytes/100 WBC (Bld) 5.0 % Normal 1.7-12.0 [facility] Comment on above: Performed By: #### C BC #### [facility] [address] [address] [address] Shiela Barlow NEUT # 7.1 103/ul Critically high 1.4-6.5 [facility] Comment on above: Performed By: #### C BC #### [facility] [address] [id number] Shiela Barlow Neutrophils/100 WBC (Bld) 81.1 % Critically high 43.0-75.0 [facility] Comment on above: Performed By: #### C BC #### [facility] [address] [address] [address] Shiela Barlow Platelet mean volume (Bld) [Entitic vol] 9.8 fL Normal 9.5-13.5 [facility] Comment on above: Performed By: #### C BC #### [facility] [address] [place] [address] Dr. Shiela Barlow PLT 251 103/ul Normal 150-450 [facility] Comment on above: Performed By: #### C BC #### [facility] [address] [place] [address] Dr. Shiela Barlow RBC 5.07 106/ul Normal 4.70-6.10 [facility] Comment on above: Performed By: #### C BC #### [facility] [address] [place] [address] Dr. Shiela Barlow WBC 8.7 103/ul Normal 4.0-11.0 [facility] Comment on above: Performed By: #### C BC #### [facility] [address] [place] [address] ABD/PELVIS WO CONon 09-23 CT ABD/PELVIS WO CON EXAMINATION: CT ABD/PELVIS WO CON, 09/23/2022 12:09 AM EDT HISTORY: Upper abdominal pain acute nausea, vomiting, and diarrhea. COMPARISON: CT abdomen pelvis 10/20/2021 TECHNIQUE: CT scan of the abdomen and pelvis was performed without IV contrast. CT dose reduction technique was used, including Automated Exposure Control. FINDINGS: Visualized lung bases and cardiac apex are unremarkable. Small hiatal hernia. Stomach is underdistended. No perigastric inflammatory stranding. Diffuse hepatic steatosis and hepatomegaly. Gallbladder, pancreas, spleen, adrenal glands, left kidney, appendix, underdistended urinary bladder, and other pelvic structures are unremarkable. 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 Diffuse liquid stool throughout the large. Fluid within the nondilated lower small bowel lumen. No discrete bowel wall thickening or evidence for obstructive bowel process. No pneumoperitoneum or large ascites. No acute bony abnormality. IMPRESSION: Diffuse liquid stool throughout the large bowel reflecting underlying diarrhea. Fluid within the nondilated lower small bowel lumen reflecting enteritis in the proper clinical setting. Diffuse hepatic steatosis and hepatomegaly. 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 Electronically authenticated by: TOREY WOO Date: 2022-09-23 02:21 Normal [facility] GI PANEL (PCR)on 09-23-2022 Adenovirus F 40/41 Not detected Normal NOT DETECTED [facility] Comment on above: Performed By: #### G IPANEL #### [facility] [address] [place] [address] Dr. Shiela Barlow Astrovirus Not detected Normal NOT DETECTED [facility] Comment on above: Performed By: #### G IPANEL #### [facility] [address] [address] [address] Shiela Barlow C. Diff toxin A/B Not detected Normal NOT DETECTED [facility] Comment on above: Performed By: #### G IPANEL #### [facility] [address] [address] [address] Shiela Barlow Campylobacter Not detected Normal NOT DETECTED [facility] Comment on above: Performed By: #### G IPANEL #### [facility] [address] [address] [address] Shiela Barlow Cryptosporidium Not detected Normal NOT DETECTED [facility] Comment on above: Performed By: #### G IPANEL #### [facility] [address] [address] [address] Shiela Barlow Cyclos. Cayetanensis Not detected Normal NOT DETECTED [facility] Comment on above: Performed By: #### G IPANEL #### [facility] [address] [address] [address] Shiela Barlow E. Coli O157 Not Applicable Normal Not Applicable [facility] Comment on above: Performed By: #### G IPANEL #### [facility] [address] [place] [address] Dr. Shiela Barlow E. histolytica Not detected Normal NOT DETECTED [facility] Comment on above: Performed By: #### G IPANEL #### [facility] [address] [place] [address] Dr. Shiela Barlow EAEC Not detected Normal NOT DETECTED [facility] Comment on above: Performed By: #### G IPANEL #### [facility] [address] [place] [address] Dr. Shiela Barlow EIEC Not detected Normal NOT DETECTED [facility] Comment on above: Performed By: #### G IPANEL #### [facility] [address] [place] [address] Dr. Shiela Barlow EPEC Not detected Normal NOT DETECTED [facility] Comment on above: Performed By: #### G IPANEL #### [facility] [address] [place] [address] Dr. Shiela Barlow ETEC Not detected Normal NOT DETECTED [facility] Comment on above: Performed By: #### G IPANEL #### [facility] [address] [place] [address] Dr. Shiela Rhodes. Lamblia Not detected Normal NOT DETECTED [facility] Comment on above: Performed By: #### G IPANEL #### [facility] [address] [place] [address] Dr. Shiela ANDERSONANEL CONTROLS PASSED Normal [facility] Comment on above: Performed By: #### G IPANEL #### [facility] [address] [place] [address] Dr. Shiela FAYE ARNALDO HEADER GI PANEL BACTERIA Normal [facility] Comment on above: Performed By: #### G IPANEL #### [facility] [address] [place] [address] Dr. Shiela FAYEHD ECOLI GI PANEL DIARRHEAGENIC E.COLI / SHIGELLA Normal [facility] Comment on above: Performed By: #### G IPANEL #### [facility] [address] [address] [address] Shiela GREEN INFO SEE BELOW Normal [facility] Comment on above: Result Comment: EAEC - Enteroaggregative E. Coli EPEC- Enteropathogenic E. Coli ETEC- Enterotoxigenic E. Coli lt/st STEC- Shigella-like toxin-producing E. Coli stx1/stx2 EIEC- Shigella/Enteroinvasive E. Coli Performed By: #### G IPANEL #### [facility] [address] [address] [address] Shiela GREEN PARASITES GI PANEL PARASITES Normal [facility] Comment on above: Performed By: #### G IPANEL #### [facility] [address] [place] [address] Dr. Shiela GREEN VIRUS GI PANEL VIRUSES Normal [facility] Comment on above: Performed By: #### G IPANEL #### [facility] [address] [address] [address] Shiela Barlow Norovirus GI/GII Not detected Normal NOT DETECTED [facility] Comment on above: Performed By: #### G IPANEL #### [facility] [address] [place] [address] Dr. Shiela Barlow P. Shigelloides Not detected Normal NOT DETECTED [facility] Comment on above: Performed By: #### G IPANEL #### [facility] [address] [address] [address] Shiela Barlow Rotavirus A Detected Abnormal NOT DETECTED [facility] Comment on above: Performed By: #### G IPANEL #### [facility] [address] [address] [address] Shiela Barlow Salmonella Not detected Normal NOT DETECTED [facility] Comment on above: Performed By: #### G IPANEL #### [facility] [address] [place] [address] Dr. Shiela Barlow Sapovirus Not detected Normal NOT DETECTED [facility] Comment on above: Performed By: #### G IPANEL #### [facility] [address] [address] [address] Shiela Barlow STEC Not detected Normal NOT DETECTED [facility] Comment on above: Performed By: #### G IPANEL #### [facility] [address] [place] [address] Dr. Shiela Barlow Vibrio Not detected Normal NOT DETECTED [facility] Comment on above: Performed By: #### G IPANEL #### [facility] [address] [place] [address] Dr. Shiela Barlow Vibrio Cholera Not detected Normal NOT DETECTED [facility] Comment on above: Performed By: #### G IPANEL #### [facility] [address] [place] [address] Dr. Shiela Barlow Y. Enterocolitica Not detected Normal NOT DETECTED [facility] Comment on above: Performed By: #### G IPANEL #### [facility] [address] [place] [address] Dr. Shiela Barlow PROF 14(COMP METB)on 023 Albumin [Mass/Vol] 3.8 g/dL Normal 3.4-5.0 [facility] Comment on above: Performed By: #### C MP #### [facility] [address] [place] [address] Dr. Shiela Barlow Albumin/Globulin [Mass ratio] 0.8 {ratio} Normal [facility] Comment on above: Performed By: #### C MP #### [facility] [address] [place] [address] Dr. Shiela Barlow ALP [Catalytic activity/Vol] 119 U/L Critically high 46-116 [facility] Comment on above: Performed By: #### C MP #### [facility] [address] [place] [address] Dr. Shiela Barlow ALT [Catalytic activity/Vol] 53 U/L Normal 16-63 [facility] Comment on above: Performed By: #### C MP #### [facility] [address] [place] [address] Dr. Shiela Barlow Anion gap [Moles/Vol] 14.2 mmol/L Normal [facility] Comment on above: Performed By: #### C MP #### [facility] [address] [address] [address] Shiela Barlow AST [Catalytic activity/Vol] 38 U/L Critically high 15-37 [facility] Comment on above: Performed By: #### C MP #### [facility] [address] [address] [address] Shiela Barlow Bilirubin [Mass/Vol] 1.1 mg/dL Critically high 0.2-1.0 [facility] Comment on above: Performed By: #### C MP #### [facility] [address] [address] [address] Shiela Barlow Calcium [Mass/Vol] 8.6 mg/dL Normal 8.5-10.1 [facility] Comment on above: Performed By: #### C MP #### [facility] [address] [place] [address] Dr. Shiela Barlow Chloride [Moles/Vol] 97 mmol/L Critically low 98-107 [facility] Comment on above: Performed By: #### C MP #### [facility] [address] [address] [address] Shiela Barlow CO2 [Moles/Vol] 25.8 mmol/L Normal 21.0-32.0 [facility] Comment on above: Performed By: #### C MP #### [facility] [address] [address] [address] Shiela Barlow Creatinine [Mass/Vol] 1.01 mg/dL Normal 0.70-1.30 [facility] Comment on above: Performed By: #### C MP #### [facility] [address] [address] [address] Shiela Barlow EGFR-AF LATVIAN >60 Normal >=60 [facility] Comment on above: Performed By: #### C MP #### [facility] [address] [address] [address] Shiela Barlow EGFR-NON AF LATVIAN >60 Normal >=60 [facility] Comment on above: Performed By: #### C MP #### [facility] [address] [address] [address] Shiela Barlow Globulin (S) [Mass/Vol] 4.5 g/dL Normal [facility] Comment on above: Performed By: #### C MP #### [facility] [address] [place] [address] Dr. Shiela Barlow Glucose [Mass/Vol] 207 mg/dL Critically high 74-106 [facility] Comment on above: Performed By: #### C MP #### [facility] [address] [address] [address] Shiela Barlow Potassium [Moles/Vol] 4.0 mmol/L Normal 3.5-5.1 [facility] Comment on above: Performed By: #### C MP #### [facility] [address] [place] [address] Dr. Shiela Barlow Protein [Mass/Vol] 8.3 g/dL Critically high 6.4-8.2 [facility] Comment on above: Performed By: #### C MP #### [facility] [address] [place] [address] Dr. Shiela Barlow Sodium [Moles/Vol] 133 mmol/L Critically low 136-145 [facility] Comment on above: Performed By: #### C MP #### [facility] [address] [place] [address] Dr. Shiela Barlow Urea nitrogen [Mass/Vol] 11.0 mg/dL Normal 7.0-18.0 [facility] Comment on above: Performed By: #### C MP #### [facility] [address] [place] [address] Dr. Shiela Barlow Urea nitrogen/Creatinine [Mass ratio] 10.9 mg/mg Normal [facility] Comment on above: Performed By: #### C MP #### [facility] [address] [place] [address] Dr. Shiela Barlow GLYCOHEMOGLOBIN A1Con 2021 ADA RECOMMENDATION SEE BELOW Normal [facility] Comment on above: Result Comment: ADA RECOMMENDED LIMIT 4.0 - 6.0 ADA THERAPEUTIC TARGET < 7.0 ACTION SUGGESTED > 7.0 Performed By: #### A 1C ####[facility] [address] [place], [place] [address]HqDr. Shiela Barlow Glucose [Mass/Vol] 258 mg/dL Normal [facility] Comment on above: Performed By: #### A 1C ####[facility] [address] [place], [place] [address]SrDr. Shiela Barlow HbA1c (Bld) [Mass fraction] 10.6 % Critically high 4.5-6.2 [facility] Comment on above: Performed By: #### A 1C ####[facility] [address] [id number]. Shiela Barlow CBC AUTO DIFFon 04-17-2022 BASO # 0.1 103/ul Normal 0.0-0.1 [facility] Comment on above: Performed By: #### C BC #### [facility] [address] [address] [address] Shiela Barlow Basophils/100 WBC (Bld) 0.8 % Normal 0.2-2.0 [facility] Comment on above: Performed By: #### C BC #### [facility] [address] [address] [address] Shiela Barlow EO # 0.4 103/ul Normal 0.0-0.7 [facility] Comment on above: Performed By: #### C BC #### [facility] [address] [address] [address] Shiela Barlow Eosinophils/100 WBC (Bld) 4.1 % Normal 0.9-7.0 [facility] Comment on above: Performed By: #### C BC #### [facility] [address] [address] [address] Shiela Barlow Erythrocyte distribution width (RBC) [Ratio] 13.4 % Normal 11.0-15.0 [facility] Comment on above: Performed By: #### C BC #### [facility] [address] [address] [address] Shiela Barlow Hematocrit (Bld) [Volume fraction] 42.7 % Normal 42.0-54.0 [facility] Comment on above: Performed By: #### C BC #### [facility] [address] [place] [address] Dr. Shiela Barlow Hemoglobin (Bld) [Mass/Vol] 14.4 g/dL Normal 14.0-18.0 [facility] Comment on above: Performed By: #### C BC #### [facility] [address] [place] [address] Dr. Shiela Barlow IG # 0.05 10e3/ul Critically high 0.00-0.03 [facility] Comment on above: Performed By: #### C BC #### [facility] [address] [place] [address] Dr. Shiela Barlow IG % 0.6 % Critically high 0.0-0.5 [facility] Comment on above: Performed By: #### C BC #### [facility] [address] [place] [address] Dr. Shiela Barlow LYMPH # 2.5 103/ul Normal 1.2-3.8 [facility] Comment on above: Performed By: #### C BC #### [facility] [address] [place] [address] Dr. Shiela Barlow Lymphocytes/100 WBC (Bld) 28.9 % Normal 20.5-60.0 [facility] Comment on above: Performed By: #### C BC #### [facility] [address] [place] [address] Dr. Shiela Barlow MANUAL DIFF REQ NO Normal [facility] Comment on above: Performed By: #### C BC #### [facility] [address] [place] [address] Dr. Shiela Barlow MCH (RBC) [Entitic mass] 28.0 pg Normal 25.9-34.0 [facility] Comment on above: Performed By: #### C BC #### [facility] [address] [place] [address] Dr. Shiela Barlow MCHC (RBC) [Mass/Vol] 33.7 g/dL Normal 29.9-35.2 [facility] Comment on above: Performed By: #### C BC #### [facility] [address] [address] [address] Shiela Barlow MCV (RBC) [Entitic vol] 83.1 fL Normal 80.0-94.0 [facility] Comment on above: Performed By: #### C BC #### [facility] [address] [address] [address] Shiela Barlow MONO # 0.6 103/ul Normal 0.3-0.8 [facility] Comment on above: Performed By: #### C BC #### [facility] [address] [address] [address] Shiela Barlow Monocytes/100 WBC (Bld) 6.5 % Normal 1.7-12.0 [facility] Comment on above: Performed By: #### C BC #### [facility] [address] [place] [address] Dr. Shiela Barlow NEUT # 5.2 103/ul Normal 1.4-6.5 [facility] Comment on above: Performed By: #### C BC #### [facility] [address] [place] [address] Dr. Shiela Barlow Neutrophils/100 WBC (Bld) 59.1 % Normal 43.0-75.0 [facility] Comment on above: Performed By: #### C BC #### [facility] [address] [place] [address] Dr. Shiela Barlow Platelet mean volume (Bld) [Entitic vol] 10.7 fL Normal 9.5-13.5 [facility] Comment on above: Performed By: #### C BC #### [facility] [address] [place] [address] Dr. Shiela Barlow PLT 292 103/ul Normal 150-450 [facility] Comment on above: Performed By: #### C BC #### [facility] [address] [place] [address] Dr. Shiela Barlow RBC 5.14 106/ul Normal 4.70-6.10 [facility] Comment on above: Performed By: #### C BC #### [facility] [address] [place] [address] Dr. Shiela Barlow WBC 8.7 103/ul Normal 4.0-11.0 [facility] Comment on above: Performed By: #### C BC #### [facility] [address] [place], [place] [address] Dr. Shiela Barlow DIRECT LDLon 04-17-2022 Cholesterol in LDL [Mass/Vol] 142 mg/dL Normal [facility] Comment on above: Performed By: #### L IPID, LIVER, DLDL, TSH, BMP ####[facility] [address] [id number] Barlow DLDL NORMAL SEE BELOW Normal [facility] Comment on above: Result Comment: <100 mg/dl OPTIMAL 100 - 129 mg/dl NEAR OR ABOVE OPTIMAL 130 - 159 mg/dl BORDERLINE HIGH 160 - 189 mg/dl HIGH >190 mg/dl VERY HIGH Performed By: #### L IPID, LIVER, DLDL, TSH, BMP ####[facility] [address] [address]Dr. Shiela Barlow LIPID PROFILEon 04-17-2022 CHOL-HDL RATIO NORM SEE BELOW Normal [facility] Comment on above: Result Comment: 3.3 - 4.4 LOW RISK 4.4 - 7.1 AVERAGE RISK 7.1 - 11.0 MODERATE RISK >11.0 HIGH RISK Performed By: #### L IPID, LIVER, DLDL, TSH, BMP ####[facility] [address] [id number] Barlow Cholesterol [Mass/Vol] 230 mg/dL Critically high <=200 [facility] Comment on above: Performed By: #### L IPID, LIVER, DLDL, TSH, BMP ####[facility] [address] [place], [place] [address]QgTracey Barlow Cholesterol in HDL [Mass/Vol] 30 mg/dL Critically low 40-60 [facility] Comment on above: Performed By: #### L IPID, LIVER, DLDL, TSH, BMP ####[facility] [address] [id number] Barlow Cholesterol in LDL [Mass/Vol] 114.2 mg/dL Normal [facility] Comment on above: Performed By: #### L IPID, LIVER, DLDL, TSH, BMP ####[facility] [address] [id number]. Shiela Barlow Cholesterol.total/Ch olesterol in HDL [Mass ratio] 7.7 {ratio} Normal [facility] Comment on above: Performed By: #### L IPID, LIVER, DLDL, TSH, BMP ####[facility] [address] [id number]. Shiela Barlow HDL NORMAL > or = 60 mg/dl - LO W CARDIOVASCULAR RISK <40 mg/dl - HIGH CARDIOVASCULAR RISK Normal [facility] Comment on above: Performed By: #### L IPID, LIVER, DLDL, TSH, BMP ####[facility] [address] [address]Dr. Shiela Barlow LDL CALC NORMAL SEE BELOW Normal [facility] Comment on above: Result Comment: <100 mg/dl OPTIMAL 100 - 129 mg/dl NEAR OR ABOVE OPTIMAL 130 - 159 mg/dl BORDERLINE HIGH 160 - 189 mg/dl HIGH >190 mg/dl VERY HIGH Performed By: #### L IPID, LIVER, DLDL, TSH, BMP ####[facility] [address] [address]Dr. Shiela Barlow Triglyceride [Mass/Vol] 429 mg/dL Critically high <=150 [facility] Comment on above: Performed By: #### L IPID, LIVER, DLDL, TSH, BMP ####[facility] [address] [id number]. Shiela Barlow VLDL CALC 85.8 mg/dL Normal [facility] Comment on above: Performed By: #### L IPID, LIVER, DLDL, TSH, BMP ####[facility] [address] [address]Dr. Shiela Barlow LIVER PROFILEon 04-17-2022 Albumin [Mass/Vol] 3.9 g/dL Normal 3.4-5.0 [facility] Comment on above: Performed By: #### L IPID, LIVER, DLDL, TSH, BMP ####[facility] [address] [address]Dr. Shiela Barlow Albumin/Globulin [Mass ratio] 0.9 {ratio} Normal [facility] Comment on above: Performed By: #### L IPID, LIVER, DLDL, TSH, BMP ####[facility] [address] [address]Dr. Shiela Barlow ALP [Catalytic activity/Vol] 113 U/L Normal 46-116 [facility] Comment on above: Performed By: #### L IPID, LIVER, DLDL, TSH, BMP ####[facility] [address] [address]Dr. Shiela Barlow ALT [Catalytic activity/Vol] 74 U/L Critically high 16-63 [facility] Comment on above: Performed By: #### L IPID, LIVER, DLDL, TSH, BMP ####[facility] [address] [address]Dr. Shiela Barlow AST [Catalytic activity/Vol] 31 U/L Normal 15-37 [facility] Comment on above: Performed By: #### L IPID, LIVER, DLDL, TSH, BMP ####[facility] [address] [address]Dr. Jessicalove Barlow BILI, CONJUGATED 0.1 mg/dL Normal 0.0-0.2 [facility] Comment on above: Performed By: #### L IPID, LIVER, DLDL, TSH, BMP ####[facility] [address] [place], [place] [address]Dr. Jessicalove Barlow Bilirubin [Mass/Vol] 0.8 mg/dL Normal 0.2-1.0 [facility] Comment on above: Performed By: #### L IPID, LIVER, DLDL, TSH, BMP ####[facility] [address] [place], [place] [address]Dr. Shiela Barlow Globulin (S) [Mass/Vol] 4.4 g/dL Normal [facility] Comment on above: Performed By: #### L IPID, LIVER, DLDL, TSH, BMP ####[facility] [address] [place] [address]Dr. Shiela Barlow Protein [Mass/Vol] 8.3 g/dL Critically high 6.4-8.2 [facility] Comment on above: Performed By: #### L IPID, LIVER, DLDL, TSH, BMP ####[facility] [address] [place] [address]Dr. Shiela Barlow MICROALBUMIN, RAND URon 11-0 mALB 15.6 mg/L Normal <=30.0 [facility] Comment on above: Performed By: #### M ALBR ####[facility] [address] [place] [address]Dr. Shiela Barlow PROF CHEM 8 (BAS METB)on Anion gap [Moles/Vol] 14.8 mmol/L Normal [facility] Comment on above: Performed By: #### L IPID, LIVER, DLDL, TSH, BMP ####[facility] [address] [place] [address]Dr. Shiela Barlow Calcium [Mass/Vol] 9.7 mg/dL Normal 8.5-10.1 [facility] Comment on above: Performed By: #### L IPID, LIVER, DLDL, TSH, BMP ####[facility] [address] [address]Dr. Shiela Barlow Chloride [Moles/Vol] 95 mmol/L Critically low 98-107 [facility] Comment on above: Performed By: #### L IPID, LIVER, DLDL, TSH, BMP ####[facility] [address] [place] [address]Dr. Shiela Barlow CO2 [Moles/Vol] 27.0 mmol/L Normal 21.0-32.0 [facility] Comment on above: Performed By: #### L IPID, LIVER, DLDL, TSH, BMP ####[facility] [address] [place] [address]Dr. Shiela Barlow Creatinine [Mass/Vol] 1.06 mg/dL Normal 0.70-1.30 [facility] Comment on above: Performed By: #### L IPID, LIVER, DLDL, TSH, BMP ####[facility] [address] [place] [address]Dr. Yilan Barlow EGFR-AF LATVIAN >60 Normal >=60 [facility] Comment on above: Performed By: #### L IPID, LIVER, DLDL, TSH, BMP ####[facility] [address] [place] [address]Dr. Yilan Barlow EGFR-NON AF LATVIAN >60 Normal >=60 [facility] Comment on above: Performed By: #### L IPID, LIVER, DLDL, TSH, BMP ####[facility] [address] [place] [address]Dr. Jessicalan Barlow Glucose [Mass/Vol] 383 mg/dL Critically high 74-106 [facility] Comment on above: Performed By: #### L IPID, LIVER, DLDL, TSH, BMP ####[facility] [address] [place] [address]Dr. Yilan Barlow Potassium [Moles/Vol] 4.8 mmol/L Normal 3.5-5.1 [facility] Comment on above: Performed By: #### L IPID, LIVER, DLDL, TSH, BMP ####[facility] [address] [place] [address]Dr. Yilan Barlow Sodium [Moles/Vol] 132 mmol/L Critically low 136-145 [facility] Comment on above: Performed By: #### L IPID, LIVER, DLDL, TSH, BMP ####[facility] [address] [place] [id number]. Jessicalan Barlow Urea nitrogen [Mass/Vol] 9.0 mg/dL Normal 7.0-18.0 [facility] Comment on above: Performed By: #### L IPID, LIVER, DLDL, TSH, BMP ####[facility] [id number] [place] [address]Dr. Shiela Barlow Urea nitrogen/Creatinine [Mass ratio] 8.5 mg/mg Normal [facility] Comment on above: Performed By: #### L IPID, LIVER, DLDL, TSH, BMP ####[facility] [id number] [place] [address] [id number]. Shiela Barlow TSHon 04-17-2022 TSH 1.973 uIU/mL Normal 0.358-3.740 [facility] Comment on above: Performed By: #### L IPID, LIVER, DLDL, TSH, BMP ####[facility] [id number] [address]Dr. Shiela Barlow BILIRUBIN CONJUGATED (DIRECT )on 10-20-2021 BILI, CONJUGATED 0.3 mg/dL Critically high 0.0-0.2 [facility] Comment on above: Performed By: #### D SANCHO #### [facility] [address] [place] [address] Dr. Shiela Barlow CBC AUTO DIFFon 10-20-2021 BASO # 0.1 103/ul Normal 0.0-0.1 [facility] Comment on above: Performed By: #### C BC #### [facility] [address] [place] [address] Dr. Shiela Barlow Basophils/100 WBC (Bld) 0.4 % Normal 0.2-2.0 [facility] Comment on above: Performed By: #### C BC #### [facility] [address] [place] [address] Dr. Shiela Barlow EO # 0.1 103/ul Normal 0.0-0.7 [facility] Comment on above: Performed By: #### C BC #### [facility] [address] [place] [address] Dr. Shiela Barlow Eosinophils/100 WBC (Bld) 0.9 % Normal 0.9-7.0 [facility] Comment on above: Performed By: #### C BC #### [facility] [address] [place] [address] Dr. Shiela Barlow Erythrocyte distribution width (RBC) [Ratio] 13.5 % Normal 11.0-15.0 [facility] Comment on above: Performed By: #### C BC #### [facility] [address] [place] [address] Dr. Shiela Barlow Hematocrit (Bld) [Volume fraction] 46.0 % Normal 42.0-54.0 [facility] Comment on above: Performed By: #### C BC #### [facility] [address] [place] [address] Dr. Shiela Barlow Hemoglobin (Bld) [Mass/Vol] 15.5 g/dL Normal 14.0-18.0 [facility] Comment on above: Performed By: #### C BC #### [facility] [address] [place] [address] Dr. Shiela Barlow IG # 0.07 10e3/ul Critically high 0.00-0.03 [facility] Comment on above: Performed By: #### C BC #### [facility] [address] [place] [address] Dr. Shiela Barlow IG % 0.5 % Normal 0.0-0.5 [facility] Comment on above: Performed By: #### C BC #### [facility] [address] [place] [address] Dr. Shiela Barlow LYMPH # 1.0 103/ul Critically low 1.2-3.8 [facility] Comment on above: Performed By: #### C BC #### [facility] [address] [place] [address] Dr. Shiela Barlow Lymphocytes/100 WBC (Bld) 7.5 % Critically low 20.5-60.0 [facility] Comment on above: Performed By: #### C BC #### [facility] [address] [place] [address] Dr. Shiela Barlow MANUAL DIFF REQ NO Normal [facility] Comment on above: Performed By: #### C BC #### [facility] [address] [place] [address] Dr. Shiela Barlow MCH (RBC) [Entitic mass] 27.8 pg Normal 25.9-34.0 [facility] Comment on above: Performed By: #### C BC #### [facility] [address] [place] [address] Dr. Shiela Barlow MCHC (RBC) [Mass/Vol] 33.7 g/dL Normal 29.9-35.2 [facility] Comment on above: Performed By: #### C BC #### [facility] [address] [place] [address] Dr. Shiela Barlow MCV (RBC) [Entitic vol] 82.4 fL Normal 80.0-94.0 [facility] Comment on above: Performed By: #### C BC #### [facility] [address] [place] [address] Dr. Shiela Barlow MONO # 0.5 103/ul Normal 0.3-0.8 [facility] Comment on above: Performed By: #### C BC #### [facility] [address] [place] [address] Dr. Shiela Barlow Monocytes/100 WBC (Bld) 3.3 % Normal 1.7-12.0 [facility] Comment on above: Performed By: #### C BC #### [facility] [address] [place] [address] Dr. Shiela Barlow NEUT # 11.9 103/ul Critically high 1.4-6.5 [facility] Comment on above: Performed By: #### C BC #### [facility] [address] [place] [address] Dr. Shiela Barlow Neutrophils/100 WBC (Bld) 87.4 % Critically high 43.0-75.0 [facility] Comment on above: Performed By: #### C BC #### [facility] [address] [place] [address] Dr. Shiela Barlow Platelet mean volume (Bld) [Entitic vol] 9.9 fL Normal 9.5-13.5 [facility] Comment on above: Performed By: #### C BC #### [facility] [address] [place] [address] Dr. Shiela Barlow PLT 289 103/ul Normal 150-450 [facility] Comment on above: Performed By: #### C BC #### [facility] [address] [place] [address] Dr. Shiela Barlow RBC 5.58 106/ul Normal 4.70-6.10 [facility] Comment on above: Performed By: #### C BC #### [facility] [address] [address] [address] Shiela Barlow WBC 13.6 103/ul Critically high 4.0-11.0 [facility] Comment on above: Performed By: #### C BC #### [facility] [address] [place], [place] [address] ABD/PELVIS WO CONon 10-20 CT ABD/PELVIS WO CON CT ABDOMEN AND PELV IS WITHOUT CONTRAST HISTORY: Left flank pain. History of renal stones. COMPARISON: CT 12/30/2019. METHOD: Dose reduction techniques were achieved by using automated exposure control and/or adjustment of mA and/or kV according to patient size and/or use of iterative reconstruction technique. FINDINGS: The lung bases are clear. The evaluation of solid organs is limited with no IV contrast. The evaluation for lymphadenopathy is very limited with no IV contrast. There is no intrahepatic biliary ductal dilatation. The spleen is normal in size. The adrenal glands are normal appearing. There is a small hiatal hernia. The liver is fatty. There are multiple right renal cortical scar seen previously. There are no renal stones or hydronephrosis. There are no ureteral stones. There are no bladder stones. The prostate is normal in size. There is no bowel wall thickening or obstruction. The appendix is normal appearing. There is no free fluid or free air. There is a stable small sclerotic lesion in the left posterior lateral ninth rib which most likely represents a bone island. There are no acute bony abnormalities. IMPRESSION: No renal stones or hydronephrosis. Multiple right renal cortical scars. Fatty liver. Normal appendix. Electronically authenticated by: CARLYN HOUSTON Date: 2021-10-20 09:43 Normal [facility] LIPASEon 10-20-2021 Lipase [Catalytic activity/Vol] 54.0 U/L Critically low 73.0-393.0 [facility] Comment on above: Performed By: #### L IPA, CMP #### [facility] [address] [place], [place] [address] Dr. Shiela Barlow POINT OF CARE GLUCOSEon Glucose [Mass/Vol] 315 mg/dL Critically high 74-106 [facility] Comment on above: Performed By: #### P OCGLUC #### [facility] [address] [place] [address] Dr. Shiela Barlow PROF 14(COMP METB)on 022 Albumin [Mass/Vol] 4.1 g/dL Normal 3.4-5.0 [facility] Comment on above: Performed By: #### L IPA, CMP #### [facility] [address] [place] [address] Dr. Shiela Barlow Albumin/Globulin [Mass ratio] 0.9 {ratio} Normal [facility] Comment on above: Performed By: #### L IPA, CMP #### [facility] [address] [place] [address] Dr. Shiela Barlow ALP [Catalytic activity/Vol] 119 U/L Critically high 46-116 [facility] Comment on above: Performed By: #### L IPA, CMP #### [facility] [address] [place] [address] Dr. Shiela Barlow ALT [Catalytic activity/Vol] 61 U/L Normal 16-63 [facility] Comment on above: Performed By: #### L IPA, CMP #### [facility] [address] [place] [address] Dr. Shiela Barlow Anion gap [Moles/Vol] 17.0 mmol/L Normal [facility] Comment on above: Performed By: #### L IPA, CMP #### [facility] [address] [place] [address] Dr. Shiela Barlow AST [Catalytic activity/Vol] 30 U/L Normal 15-37 [facility] Comment on above: Performed By: #### L IPA, CMP #### [facility] [address] [place] [address] Dr. Shiela Barlow Bilirubin [Mass/Vol] 1.8 mg/dL Critically high 0.2-1.0 [facility] Comment on above: Performed By: #### L IPA, CMP #### [facility] [address] [place] [address] Dr. Shiela Barlow Calcium [Mass/Vol] 8.8 mg/dL Normal 8.5-10.1 [facility] Comment on above: Performed By: #### L IPA, CMP #### [facility] [address] [address] [address] Shiela Barlow Chloride [Moles/Vol] 94 mmol/L Critically low 98-107 [facility] Comment on above: Performed By: #### L IPA, CMP #### [facility] [address] [address] [address] Shiela Barlow CO2 [Moles/Vol] 25.3 mmol/L Normal 21.0-32.0 [facility] Comment on above: Performed By: #### L IPA, CMP #### [facility] [address] [place] [address] Dr. Shiela Barlow Creatinine [Mass/Vol] 1.09 mg/dL Normal 0.70-1.30 [facility] Comment on above: Performed By: #### L IPA, CMP #### [facility] [address] [place] [address] Dr. Shiela Barlow EGFR-AF LATVIAN >60 Normal >=60 [facility] Comment on above: Performed By: #### L IPA, CMP #### [facility] [address] [place] [address] Dr. Shiela Bralow EGFR-NON AF LATVIAN >60 Normal >=60 [facility] Comment on above: Performed By: #### L IPA, CMP #### [facility] [address] [place] [address] Dr. Shiela Barlow Globulin (S) [Mass/Vol] 4.7 g/dL Normal [facility] Comment on above: Performed By: #### L IPA, CMP #### [facility] [address] [place] [address] Dr. Shiela Barlow Glucose [Mass/Vol] 335 mg/dL Critically high 74-106 [facility] Comment on above: Performed By: #### L IPA, CMP #### [facility] [address] [place] [address] Dr. Shiela Barlow Potassium [Moles/Vol] 4.3 mmol/L Normal 3.5-5.1 [facility] Comment on above: Performed By: #### L IPA, CMP #### [facility] [address] [place] [address] Dr. Shiela Barlow Protein [Mass/Vol] 8.8 g/dL Critically high 6.4-8.2 [facility] Comment on above: Performed By: #### L IPA, CMP #### [facility] [address] [place] [address] Dr. Shiela Barlow Sodium [Moles/Vol] 132 mmol/L Critically low 136-145 [facility] Comment on above: Performed By: #### L IPA, CMP #### [facility] [address] [place] [address] Dr. Shiela Barlow Urea nitrogen [Mass/Vol] 14.0 mg/dL Normal 7.0-18.0 [facility] Comment on above: Performed By: #### L IPA, CMP #### [facility] [address] [place] [address] Dr. Shiela Barlow Urea nitrogen/Creatinine [Mass ratio] 12.8 mg/mg Normal [facility] Comment on above: Performed By: #### L IPA, CMP #### [facility] [address] [place] [address] Dr. Shiela Barlow Vital Signs Date Time Vital Sign Value Performing Clinician Marquisei briseiday 07-12-2024 14:050 Body height 175.3 cm Tree Forrester MD Work Phone: [facility] 07-12-2024 14:17-0500 Body mass index (BMI) [Ratio] 47.26 kg/m2 Tree Forrester MD Work Phone: [facility] 07-12-2024 14:17-050 Body temperature 97.5 [degF] Tree Forrester MD Work Phone: [facility] 07-12-2024 14:17-0500 Body weight 145.15 kg Tree Forrester MD Work Phone: [facility] 01-28-2025 14:17-0500 Diastolic blood pressure 88 mm[Hg] Tree Forrester MD Work Phone: [facility] 07-12-2024 14:17-0500 Heart rate 60 /min Tree Forrester MD Work Phone: [facility] 07-12-2024 14:17-0500 Respiratory rate 18 /min Tree Forrester MD Work Phone: [facility] 07-12-2024 14:17-0500 SaO2% (BldA) [Mass fraction] 92 % Tree Forrester MD Work Phone: [facility] 07-12-2024 14:17-0500 Systolic blood pressure 146 mm[Hg] Tree Forrester MD Work Phone: [facility] Healthcare Encounters Encounter Date Encounter Type Care Provider Facility Start: 07-12-2024 End: 07-12-2024 Bamboo flowsheet Tree Forrester MD Work Phone: [facility] Start: 07-12-2024 End: 07-12-2024 Bamboo flowsheet Tree Forrester MD Work Phone: [facility] Start: 07-12-2024 End: 07-12-2024 Office outpatient visit 25 minutes Tree Forrester MD Work Phone: [facility] Comment on above: Type 2 diabetes hayley itus with hyperglycemia, without long-term current use of insulin ([facility]) (Primary Dx); Benign essential hypertension ([facility]); ROSEANN (obstructive sleep apnea); Class 3 severe obesity due to excess calories with serious comorbidity and body mass index (BMI) of 45.0 to 49.9 in adult ([facility]); Annual physical exam Start: 07-12-2024 End: 07-12-2024 Patient encounter procedure Tree Forrester MD Work Phone: [facility] Start: 07-12-2024 End: 07-12-2024 ambulatory TREE FORRESTER Not Available Start: 07-07-2024 End: 07-14-2024 Orders Only Tree Forrester MD Work Phone: [facility] Comment on above: Dyslipidemia (CMS/HC C) (Primary Dx); Type 2 diabetes mellitus with hyperglycemia, without long-term current use of insulin (CMS/[facility]) Start: 02-20-2023 End: 02-21-2023 ambulatory Migue R NILL Facility:[facility] Start: 02-20-2023 End: 02-20-2023 Patient encounter procedure Migue R NILL [facility] Nill[facility] [place] Start: 02-10-2023 End: 02-11-2023 ambulatory Migue R NILL Facility:[facility] Start: 02-03-2023 End: 02-04-2023 ambulatory Migue R NILL Facility:[facility] Start: 02-03-2023 End: 02-03-2023 Patient encounter procedure Migue R NILL General Surgery Nill[facility] [place] Start: 02-03-2023 ambulatory Migue NILL Facility:[facility] Start: 01-30-2023 ambulatory Migue NILL Facility:[facility] Start: 01-29-2023 End: 01-31-2023 ambulatory Migue R NILL Facility:CD:[id number] Start: 09-23-2022 End: 09-23-[address] PHONG MIN . Facility:[facility] Start: 05-14-2022 End: 05-15-[address] TREE FORRESTER Facility:[facility] Start: 04-21-2022 Encounter for genera l adult medical examination without abnormal findings DR TREE FORRESTER [facility] Start: 04-17-2022 End: 04-18-[address] TREE FORRESTER Facility:[facility] Start: 04-17-2022 End: 04-18-2022 Encounter for general adult medical examination without abnormal findings DR TREE FORRESTER Facility:[facility] Start: 04-14-2022 End: 04-14-[address] TUTU REED Facility:[facility] Start: 10-20-2021 End: 10-20-[address] PHONG MIN . Facility:[facility] Procedures Date Procedure Procedure Detail Performing Clinician Start: 07-07-2024 Rhythm ecg 1-3 leads interpretation & reprt on Tree Forrester MD Work Phone: Start: 01-30-2023 Incision and drainag e of abscess Migue FRIDA Partial nephrectomy Migue FRIDA Plan of Treatment Date Care Activity Detail Author Start: 07-14-2025 Urine screening for protein Diabetes: Urine Protein Screening [facility] Start: 10-13-2024 End: 10-13-2024 Patient encounter procedure 10/13/2024 2:15 PM EDT Office Visit [facility] [address] [place] [address] Tree Forrester MD [address] [place] [phone] [facility] Start: 10-12-2024 Hemoglobin A1c measurement Diabetes: Hemoglobin A1C [facility] Start: 07-12-2024 End: 07-12-2025 Basic metabolic 1998 panel - Serum or Plasma Basic metabolic panel Lab Routine Annual physical exam Expected: 07/12/2024 (Approximate), Expires: 07/12/2025 [facility] Comment on above: Expected: 07/12/2024 (Approximate), Expires: 07/12/2025 Start: 07-12-2024 End: 07-12-2025 CBC W Auto Differential panel - Blood CBC and differential Lab Routine Annual physical exam Expected: 07/12/2024 (Approximate), Expires: 07/12/2025 [facility] Comment on above: Expected: 07/12/2024 (Approximate), Expires: 07/12/2025 Start: 07-12-2024 End: 07-12-2025 Hemoglobin A1c/Hemoglobin.total in Blood Hemoglobin A1c Lab Routine Type 2 diabetes mellitus with hyperglycemia, without long-term current use of insulin ([facility]) Expected: 07/12/2024 (Approximate), Expires: 07/12/2025 [facility] Comment on above: Expected: 07/12/2024 (Approximate), Expires: 07/12/2025 Start: 07-12-2024 End: 07-12-2025 Hepatic function 2000 panel - Serum or Plasma Hepatic function panel Lab Routine Annual physical exam Expected: 07/12/2024 (Approximate), Expires: 07/12/2025 [facility] Comment on above: Expected: 07/12/2024 (Approximate), Expires: 07/12/2025 Start: 07-12-2024 End: 07-12-2025 Lipid 1996 panel - Serum or Plasma Lipid panel Lab Routine Annual physical exam Expected: 07/12/2024 (Approximate), Expires: 07/12/2025 [facility] Comment on above: Expected: 07/12/2024 (Approximate), Expires: 07/12/2025 Start: 07-12-2024 End: 07-12-2025 Microalbumin/Creatinine panel in random Urine Microalbumin / creatinine, urine ratio Lab Routine Type 2 diabetes mellitus with hyperglycemia, without long-term current use of insulin ([facility]) Expected: 07/12/2024 (Approximate), Expires: 07/12/2025 [facility] Work Phone: Comment on above: Expected: 07/12/2024 (Approximate), Expires: 07/12/2025 Start: 07-12-2024 End: 07-12-2024 Patient encounter procedure 07/12/2024 2:00 PM EST Office Visit [facility] [address] [place] [phone] Tree Forrester MD [address] [place] [id number] Arrived [facility] Comment on above: Arrived Start: 07-12-2024 End: 07-12-2025 Thyrotropin [Units/volume] in Serum or Plasma TSH Lab Routine Annual physical exam Expected: 07/12/2024 (Approximate), Expires: 07/12/2025 [facility] Comment on above: Expected: 07/12/2024 (Approximate), Expires: 07/12/2025 Start: 02-14-2024 Influenza vaccination Influenza Vacc ine (#1) [facility] Start: 2004 Urine screening for protein Diabetes: Urine Protein Screening [facility] Start: 1995 Glaucoma screening Diabetes: R etinopathy Screening [facility] Start: 1985 Hemoglobin A1c measurement Diabetes: Hemoglobin A1C [facility] Payers Date Payer Category Payer Private Health Insurance [employer] [id number] 2023 Unknown [id number] 2023 Unknown [id number] 2018 [facility] [employer] [id number] 1985 Unknown [id number] 593 1985 Unknown [id number]. 593 1985 Unknown [id number] [id number]. 593 1985 Unknown [id number]. 593 1985 Unknown [id number]. 593 1985 Unknown [id number] 727 1985 Unknown [id number] 727 1985 Unknown [id number] [id number]. 727 1985 Unknown [id number]. 727 1985 Unknown [id number] 1259 1959 Unknown [id number] Social History Date Type Detail Facility Start: 02-03-2023 End: 07-12-2024 Tobacco smoking status Never smoked tobacco (finding) [facility] Tobacco smoking status Never [facility] [place] Start: 07-12-2024 Sex Assigned At Male F [facility] Tobacco smoking status [facility] Tobacco smoking consumption unknown [facility] Start: 1985 Sex assigned at Not on file [facility] Start: 07-12-2024 Tobacco use and exposure Smokeless tobacco non-user [facility] Start: 07-12-2024 History of Social function [facility] Functional Status Date Assessment Result Facility 02-03-2023 Functional Status N/A [facility] [place] History of Present illness Narrative 07-12-2024 Tree Forrester MD - 07/12/2024 2:57 PM Ulises Forrester MD - 07/12/2024 2:57 PM Ulises Forrester MD - 07/12/2024 2:57 PM Ulises Forrester MD - 07/12/2024 2:56 PM EST Note Date & Type Note Facility 07-12-2024 History of Presen t illness Narrative Associated Problem(s): ROSEANN (obstructive sleep apnea) Sleeping well with CPAP and use nightly. Patient is benefiting from PAP therapy. Associated Problem(s): Class 3 severe obesity due to excess calories with serious comorbidity and body mass index (BMI) of 45.0 to 49.9 in adult ([facility]) Discussed proper diet and regular aerobic exercise. Recommend Weight Watchers and need to limit calories and smaller portions. Need to increase activity and regular aerobic exercise several days a week for 30 minutes at a time. Associated Problem(s): Benign essential hypertension ([facility]) BP controlled and monitor PRN. Associated Problem(s): Type 2 diabetes mellitus with hyperglycemia ([facility]) Reports BS around 200 and increase metformin. Due for A1C. Stick to ADA diet and limit carbs. Images from the original note were not included. Subjective Patient ID: Jamie Stout is a 38 y.o. male who presents for Follow-up (Er f/up blood sugar high). ER follow up from 07/07 for hyperglycemia. History of DM and HTN but last seen 05/06. BS typically around 200. That day didn't feel well and very nauseated. To ER and BS over 500. Given IV fluids and discharged. Reports BS back to around 200. Tries to eat well and stick to ADA diet. Denies signs of elevated BS such as polyuria, polyphagia or polydipsia. Checking BP PRN and typically controlled. BP normal today. Taking medication daily and tolerating without side effects. ROSEANN controlled with CPAP. Using machine nightly for entire time asleep, typically 6-8 hours. Sleeping well and not waking up as much during night. Rested in am and not as tired during day. Weight down 18 pounds since last visit. Tries to increase activity and exercise. Review of Systems Constitutional: Negative for fatigue. Respiratory: Negative for cough, shortness of breath and wheezing. Cardiovascular: Negative for chest pain and palpitations. Gastrointestinal: Negative for abdominal pain, diarrhea, nausea and vomiting. Genitourinary: Negative for dysuria. Objective Physical Exam Constitutional: General: He is not in acute distress. Appearance: Normal appearance. HENT: Head: Normocephalic. Right Ear: Tympanic membrane and ear canal normal. Left Ear: Tympanic membrane and ear canal normal. Eyes: Extraocular Movements: Extraocular movements intact. Pupils: Pupils are equal, round, and reactive to light. Cardiovascular: Rate and Rhythm: Normal rate and regular rhythm. Heart sounds: No murmur heard. No friction rub. No gallop. Pulmonary: Breath sounds: Normal breath sounds. No wheezing, rhonchi or rales. Abdominal: General: Bowel sounds are normal. There is no distension. Palpations: Abdomen is soft. Tenderness: There is no abdominal tenderness. There is no guarding or rebound. Musculoskeletal: Left lower leg: No edema. Neurological: Mental Status: He is alert. Assessment/Plan Problem List Items Addressed This Visit Type 2 diabetes mellitus with hyperglycemia (CMS/HCC) - Primary Reports BS around 200 and increase metformin. Due for A1C. Stick to ADA diet and limit carbs. Relevant Medications metFORMIN XR (Glucophage-XR) 500 MG 24 hr tablet Other Relevant Orders Microalbumin / creatinine, urine ratio Class 3 severe obesity due to excess calories with serious comorbidity and body mass index (BMI) of 45.0 to 49.9 in adult (CMS/HCC) Discussed proper diet and regular aerobic exercise. Recommend Weight Watchers and need to limit calories and smaller portions. Need to increase activity and regular aerobic exercise several days a week for 30 minutes at a time. Benign essential hypertension (CMS/HCC) BP controlled and monitor PRN. Annual physical exam Relevant Orders Basic metabolic panel CBC and differential Hepatic function panel Lipid panel TSH ROSEANN (obstructive sleep apnea) Sleeping well with CPAP and use nightly. Patient is benefiting from PAP therapy. documented in this encounter [facility] Discharge instructions 02-10-2023 Note Date & Type Note Facility 02-10-2023 Hospital Discharg e instructions Follow Up Care 02/10/2023 16:01:49 With:FRIDA CHU, YANELIS Paris Address: [address] [place] [id number] When: only if needed General Surgery [place] Evaluation + Plan note Note Date & Type Note Facility Evaluation + Plan note Future Appointments Appointment Date:02/10/2023 03:40:00 PM Scheduled Provider:Migue GALICIA MD Location:[facility] Appointment Type: Post Op 15 General Surgery [place] Evaluation note Note Date & Type Note Facility Evaluation note Diagnosis Type 2 diabetes mellitus with hyperglycemia, without long-term current use of insulin (CMS/[facility])- Primary Benign essential hypertension (CMS/HCC) Essential hypertension, benign ROSEANN (obstructive sleep apnea) Obstructive sleep apnea (adult) (pediatric) Class 3 severe obesity due to excess calories with serious comorbidity and body mass index (BMI) of 45.0 to 49.9 in adult ([facility]) Annual physical exam Routine general medical examination at a health care facility documented in this encounter [facility] Healthcare Evaluation note Note Date & Type Note Facility Evaluation note Diagnosis Dyslipidemia (CMS/HCC)- Primary Other and unspecified hyperlipidemia Type 2 diabetes mellitus with hyperglycemia, without long-term current use of insulin (CMS/HCC) Type 2 diabetes mellitus with hyperglycemia, without long-term current use of insulin ([facility]/HCC)- Primary Benign essential hypertension (CMS/HCC) Essential hypertension, benign ROSEANN (obstructive sleep apnea) Obstructive sleep apnea (adult) (pediatric) Class 3 severe obesity due to excess calories with serious comorbidity and body mass index (BMI) of 45.0 to 49.9 in adult ([facility]) Annual physical exam Routine general medical examination at a health care facility documented in this encounter [facility] Hospital course Narrative Note Date & Type Note Facility Hospital course Narrative No data available for this section [facility] [place] [facility] Discharge instructions Note Date & Type Note Facility Hospital Discharge instructions No data available for this section General Surgery [place] Progress note Note Date & Type Note Facility Progress note No data available for this section General Surgery [place] Summary Purpose Family History No Family History Records FoundNo Family History Records FoundNo Family History Records Found Advance Directives No Advanced Directives Records FoundNo Advanced Directives Records FoundNo Advanced Directives Records Found Additional Source Comments (unrecognized sect ion and content) No Status Records FoundNo Status Records FoundNo Status Records Found INFORMATION SOURCE (unrecogn ized section and content) DATE CREATED AUTHOR 09/25/2022 [facility] DATE CREATED AUTHOR AUTHOR'S ORGANIZ ATION 02/21/2023 Al Cisse [facility] DATE CREATED AUTHOR AUTHOR'S ORGANIZ ATION 07/14/2024 [facility] EPIC Patient Care team informatio n (unrecognized section and content) Quality Control Assessor Relationship Specialty Start Date End Date Tree Forrester MD [address] [place] [id number] PCP - General Family Medicine 07/12/24 Quality Control Assessor Relationship Specialty Start Date End Date Tree Forrester MD [address] [place] [address] PCP - General Family Medicine 07/12/24 Quality Control Assessor Relationship Specialty Start Date End Date Tree Forrester MD PCP - General Family Medicine 06/15/22 07/11/24 Tree Forrester MD [address] [place] [phone] PCP - General Family Medicine 07/12/24 Reason for Visit (unrecogniz ed section and content) Reason Comments Follow-up Er f/up blood sugar high FOR RECORDS PERTAINING TO PATIENTS WHO ARE OR HAVE BEEN ENROLLED IN A CHEMICAL DEPENDENCY/SUBSTANCEABUSE PROGRAM, SOME INFORMATION MAY BE OMITTED. This clinical summary was aggregated from multiple sources. Caution should be exercised in using it in the provision of clinical care. This summary normalizes information from multiple sources, and as a consequence, information in this document may materially change the coding, format and clinical context of patient data. In addition, data may be omitted in some cases. CLINICAL DECISIONS SHOULD BE BASED ON THE PRIMARY CLINICAL RECORDS. [facility]. provides no warranty or guarantee of the accuracy or completeness of information in this document.
[2024-08-15 02:29] LABS: Glucometer 140 mg/dL (74-106)
--- NOTE | 2024-08-15 02:31 | ED.EXTPRO1 ---
HPI - Extremity Problem General Chief complaint: Extremity Problem, Nontraumatic Stated complaint: LOWER EXTREMITY NUMBNESS, DIABETIC ISSUE Time Seen by Provider: 08/15/24 02:06 Source: patient Mode of arrival: walk-in Limitations: no limitations History of Present Illness HPI Narrative: The patient is a 39-year-old male who is a type 2 diabetes on insulin, the patient is coming to the ER after he noticed some burning in his feet this evening, he mentioned that he recently almost 2 months ago was evaluated for high blood sugar and he has been symptom controlling his blood sugar The patient denies any fall or trauma he denies also any other concerns Related Data Home Medications ?Medication ?Instructions ?Recorded ?Confirmed metformin 500 mg tablet 500 mg PO DAILY 01/29/23 08/15/24 metoprolol succinate 50 mg 50 mg PO BID 01/29/23 08/15/24 tablet,extended release 24 hr omeprazole 40 mg capsule,delayed mg 07/07/24 release atorvastatin 40 mg tablet mg 08/15/24 glipizide 10 mg tablet mg 08/15/24 Allergies Allergy/AdvReac Type Severity Reaction Status Date / Time promethazine (From Phenergan) Allergy Intermediate Hallucinati Verified 08/15/24 02:00 ng Review of Systems ROS Status of ROS 10 or more systems reviewed and unremarkable except as noted in history and below [facility] Medical History (Updated 08/15/24 @ 02:31 by Margy Bernard MD) ROSEANN (obstructive sleep apnea) ?G47.33 - Obstructive sleep apnea (adult) (pediatric) (ICD-10) Morbid obesity ?E66.01 - Morbid (severe) obesity due to excess calories (ICD-10) History of prediabetes ?Z87.898 - Personal history of other specified conditions (ICD-10) Cellulitis and abscess of buttock ?L02.31 - Cutaneous abscess of buttock (ICD-10) ?L03.317 - Cellulitis of buttock (ICD-10) HTN (hypertension) ?I10 - Essential (primary) hypertension (ICD-10) Kidney stone on left side ?N20.0 - Calculus of kidney (ICD-10) Diet-controlled diabetes mellitus ?E11.9 - Type 2 diabetes mellitus without complications (ICD-10) Pain in rectum ?K62.89 - Other specified diseases of anus and rectum (ICD-10) Cellulitis ?L03.90 - Cellulitis, unspecified (ICD-10) Phlegmon ?L02.91 - Cutaneous abscess, unspecified (ICD-10) Family History Grandfather Family history of cancer Father Family history of diabetes mellitus Family history of hypertension Social History Smoking status: Never smoker Non-prescribed substance use: denies use Previous occupational history: construction consultant Known occupational exposures/hazards: No Highest level of school completed/degree received: 12th grade, no diploma Do you want help with school or training: No Are you now , , , , never or living with a partner: living with partner In a typical week, how many times do you talk on the telephone with family, friends, or neighbors: 3 or more times per week How often do you get together with friends or relatives: 3 or more times per week How often do you attend zoroastrianism or latter day services: never Do you belong to any clubs or organizations such as zoroastrianism groups unions, [employer] or athletic groups, or school groups: no Total score: 2 Score interpretation: A score of greater than or equal to 2 indicates the lowest level of social isolation. Little interest or pleasure in doing things: not at all Feeling down, depressed, or hopeless: not at all Feel stressed/tense/nervous/anxious/difficulty sleeping: not at all Life stressors: unknown source of stress Due to disability, difficulty making decisions: No Do you think of yourself as: straight/heterosexual Gender Identity: male Exam Narrative Exam Narrative: Nurses notes and vital signs reviewed and patient is not hypoxic. General: Well-appearing and in no apparent distress. Skin: Warm, dry, no pallor noted. No rash. Head: Normocephalic, atraumatic. Neck: Supple, non-tender. Eye: Pupils are equal, round and EOMI. No scleral icterus. Ears, Nose, Mouth, and Throat: TM are clear, no nasal mucosal hypertrophy. Oral mucosa is moist, no posterior oropharynx erythema, uvula is mid-line Cardiovascular: Regular Rate and Rhythm without murmur, gallop or rub. Respiratory: No accessory muscle use or respiratory distress. Lungs are clear to auscultation, no wheezing, rales or rhonchi Chest Wall: no tenderness Back: No midline thoracic or lumbar vertebral tenderness. No CVA tenderness Musculoskeletal: normal ROM, no calf or popliteal tenderness, no lower extremity edema/swelling and the patient have a good anterior tibial pulse with no skin changes to the feet GI: Abdomen is soft, non-distended. Normal bowel sounds. No masses appreciated. No tenderness to palpation. No rebound, guarding, or rigidity noted. Neurological: A&O x4. No cranial nerve dysfunction observed. Constitutional Vital Signs, click to edit/add: Last Vital Signs Temp 98.4 F 08/15/24 02:00 Pulse 71 08/15/24 02:00 Resp 18 08/15/24 02:00 BP 154/92 H 08/15/24 02:00 Pulse Ox 98 08/15/24 02:00 O2 Del Method Room Air 08/15/24 02:00 Course Vital Signs Vital signs: Vital Signs Temperature 98.4 F 08/15/24 02:00 Pulse Rate 71 08/15/24 02:00 Respiratory Rate 18 08/15/24 02:00 Blood Pressure 154/92 H 08/15/24 02:00 Pulse Oximetry 98 08/15/24 02:00 Oxygen Delivery Method Room Air 08/15/24 02:00 Temperature 98.4 F 08/15/24 02:00 Pulse Rate 71 08/15/24 02:00 Respiratory Rate 18 08/15/24 02:00 Blood Pressure 154/92 H 08/15/24 02:00 Pulse Oximetry 98 08/15/24 02:00 Oxygen Delivery Method Room Air 08/15/24 02:00 MDM - Extremity (Nontraumatic) MDM Narrative Medical decision making narrative: The patient presentation is mostly secondary to peripheral neuropathy I did explain to the patient that with his elevated blood sugar before that his presentation today is mostly secondary to peripheral neuropathy Blood sugar was 148 today and I did review his blood work workup from June where his blood sugar was elevated at 385 The patient right now is taking care of his health and measuring his blood pressure and blood sugar daily The patient googled few things online he had some question about blood supply to his feet and he was worried about the cholesterol and I did explain to him that his peripheral neuropathy right now is mostly secondary to the elevated blood sugar history The patient will reach out to his primary care doctor in the morning for further evaluation and I did offer him a blood sugar here that he mentioned that he would just follow-up with his primary care in the morning The patient is to follow up with primary care physician in next 2-3 days or to return to the emergency department should any of the signs or symptoms worsen or new symptoms develop. The patient agrees with the following Diagnosis and Treatment plan and the patient will be discharged home. Lab Data Labs: Lab Results 08/15/24 Range/Units 02:27 POC Glucose 140 H (74-106) mg/dL Discharge Plan Discharge Chief Complaint: Extremity Problem, Nontraumatic Clinical Impression: Peripheral neuropathy Patient Disposition: Home, Self-Care Time of Disposition Decision: 02:30 Condition: Good Prescriptions / Home Meds: No Action atorvastatin 40 mg tablet glipizide 10 mg tablet metformin 500 mg tablet 500 mg PO DAILY metoprolol succinate 50 mg tablet extended release 24 hr 50 mg PO BID omeprazole 40 mg capsule,delayed release(DR/EC) Print Language: Barbadian Instructions: Peripheral Neuropathy (ED) Referrals: Tree Pedraza MD [Primary Care Provider] - 1 week
--- NOTE | 2024-08-15 02:35 | PC.NURSE ---
i gave this patient verbal and written discharge orders and this patient voices yes to understanding these. at time of discharge this patient voices no concerns and shows no signs of distress
== END 2024-08-15 02:36 | disposition home or self-care (01) ==
PROVIDERS: Emergency Provider Emergency Medicine; PCP Family Medicine
DX: E11.42 Type 2 diabetes mellitus with diabetic polyneuropathy (principal); Z79.84 Long term (current) use of oral hypoglycemic drugs
CPT/HCPCS: 36415; 99282